=== PATIENT | male | born 1940 | race Caucasian/White ===

== ENCOUNTER 2017-01-13 11:06 | Outpatient (CLI) | payer MEDICARE, BC ==
--- NOTE | 2017-01-13 14:24 | MRI ---
LUMBAR SPINE MRI WITH AND WITHOUT CONTRAST: Date: 01/13/17 COMPARISON: 10/20/12. HISTORY: Post laminectomy syndrome. Localized back pain. Three previous lumbar surgeries. TECHNIQUE: Lumbar spine MRI is performed without intravenous Gadolinium administration. Multisequential, multip lanar imaging is performed. FINDINGS: There is appropriate T1 marrow signal intensity of lumbar vertebra. Lumbar spine vertebral body heig ht is maintained. No fracture. Limited evaluation of the L3, L4, and L5 vertebral bodies secondary t o bilateral transpedicular screws with resultant metallic susceptibility artifact. On the postcontra st images, there is no abnormal enhancement of the vertebral bodies. There is no abnormal enhancemen t within the thecal sac, including the cauda equina and conus medullaris. Symmetric signal intensity of the psoas muscles. There is a T2 hyperintensity in the upper pole of the right kidney compatible with a cyst. Conus medullaris terminates at the mid to lower aspect of the T12 vertebral body. There is no significant STIR hyperintensity to suggest vertebral body edema or ligamentous injury. T12-L1: Adequate disc hydration. No significant central canal stenosis. Neural foramina are patent. L1-L2: Generalized disc bulge, ligamentum flavum thickening, and facet hypertrophy result in moderate to se og central canal stenosis. The degree of central canal stenosis has progressed when compared to th e previous examination. Small amount of fluid in both interarticular facet joints. Moderate to sever e bilateral foraminal narrowing. L2-L3: Mild loss of disc space height. Generalized disc bulge, ligamentum flavum thickening, and facet hype rtrophy result in mild central canal stenosis. Mild right and moderate left neural foraminal narrowi ng. L3-L4: Disc desiccation with severe loss of disc space height. There appear to be posterior decompressive l aminectomy changes. No high grade central canal stenosis. Limited evaluation of the neural foramina. At least moderate right and possible moderate to severe left foraminal narrowing. On the postcontra st images, there is minimal enhancing scar tissue at the laminectomy defect site. L4-l5: Disc desiccation with severe loss of disc space height. No significant posterior disc abnormality. T here are posterior decompressive laminectomy changes. No high grade central canal stenosis. Moderate bilateral foraminal narrowing. Evaluation is limited by metallic susceptibility artifact. L5-S1: Posterior decompressive laminectomy changes are noted. There is a generalized disc bulge with disc m aterial encroaching upon both subarticular zones. Mass effect without obscuration of traversing S1 n erve root. No significant stenosis of the thecal sac. Minimal enhancement of laminectomy defect site . Limited evaluation of neural foramina. Moderate foraminal narrowing is suspected. IMPRESSION: 1. Lumbar fusion changes as above. 2. Degenerative changes of the lumbar spine as detailed above. POS: [place]
== END 2017-01-13 11:07 | disposition home or self-care (01) ==
LOC: MRI 11:06
PROVIDERS: ATTEND Anesthesiology Pain Medicine
DX: M47.26 Other spondylosis with radiculopathy, lumbar region (principal); M96.1 Postlaminectomy syndrome, not elsewhere classified; Z98.1 Arthrodesis status
CPT/HCPCS: 72158

== ENCOUNTER 2017-09-09 11:21 | Emergency (ER) | payer MEDICARE, BC ==
[2017-09-09 13:08] LABS: Bilirubin Negative (Negative); Blood, Urine Large (Negative); Clarity CLEAR (Clear); Glucose, Urine (Dipstick) Negative (Negative); Leukocyte Negative (Negative); Nitrite Negative (Negative); Protein, Urine (Dipstick) Negative (Neg-Trace); Urobilinogen 0.2 mg/dL (0.2-1.0)
[2017-09-09 13:11] LABS: Bacteria/HPF None Seen HPF (None Seen); Hyaline Casts/LPF 0-3 HYALINE CAST LPF (0-3 Hyaline); Pathc Cast-AUWi Flag 0.14 (0-2.49); RBC/HPF 21-50 HPF (0-3); Squamous Epithelial None Seen HPF (0-3); WBC/HPF 0-3 HPF (0-3)
[2017-09-09] MEDS ORDERED: Acetaminophen/Codeine 30-300mg Tablet ONE (13:11)
[2017-09-09 13:27] LABS: #Eosinphils 0.3 thou/uL (0.0-0.7); #Lymphocytes 0.8 thou/uL (1.20-3.40); #Monocytes 0.6 thou/uL (0.11-0.59); #Neutrophils 6.9 thou/uL (1.40-6.50); %Eosinophils 3.9 % (0.0-10.0); %Lymphocytes 9.6 % (21.0-51.0); %Monocytes 6.8 % (0.0-10.0); %Neutrophils 79.8 % (42.0-75.0); Hemoglobin 10.9 g/dL (14.0-18.0); Mean Corpuscular HGB CONC 33.6 g/dL (32.0-36.0); Mean Corpuscular Volume 98.2 fl (80.0-94.0); Mean Platelet Volume 6.3 fL (7.4-10.4); Platelet Count 238 thou/uL (130-400); RBC Distribution Width 11.6 % (11.5-14.5); Red Blood Cell (RBC) Count 3.31 mill/uL (4.70-6.10); White Blood Cell (WBC) Count 8.7 thou/uL (4.8-10.8)
--- NOTE | 2017-09-09 13:32 | RAD ---
LUMBAR SPINE 3 VIEWS: Date: 09/09/17 HISTORY: Low back pain. FINDINGS/IMPRESSION: Comparison made with exam of 07/18/15. Postop changes of posterior spinal fusion at L3-4-5 levels with bilateral pedicle screws and interloc macario vertical rods are again seen. Metallic hardware is intact. Mild compression of L3 vertebral body is stable. Degenerative changes in the lumbar spine and mild dextroscoliosis are again seen. There i s mild compression of T12 vertebral body, which is new since the last exam. POS: [place]
--- NOTE | 2017-09-09 13:37 | RAD ---
FRONTAL RADIOGRAPH PELVIS: 09/09/2017 HISTORY: Back pain. Prior surgery. Injury. COMPARISON: 02/28/2007 FINDINGS: Multilevel postoperative hardware is seen involving the lower lumbar spine at L3-L4 and at L4-L5. Th ere is a total hip arthroplasty on the left. There is no widening of the sacroiliac joints or pubic symphysis. The pelvic ring is intact. There is no displaced fracture. There is atherosclerotic gem cification of the pelvis. IMPRESSION: Chronic findings, as described above. No displaced fracture is seen. POS: [place]
[2017-09-09 13:59] LABS: ALT (SGPT) 12 U/L (8-55); AST (SGOT) 15 U/L (5-34); Albumin 3.9 g/dL (3.4-4.8); Alkaline Phosphatase 91 U/L (40-150); Anion Gap 14 mmol/L (10-20); BUN (Urea Nitrogen) 22 mg/dL (8.4-25.7); Bilirubin, Total 0.4 mg/dL (0.2-1.2); Calc. Creatinine Clearance 0 mL/min (70-130); Calcium 9.2 mg/dL (7.8-10.44); Carbon Dioxide 25 mmol/L (23-31); Chloride 100 mmol/L (98-107); Estimated GFR-MDRD 85; Glucose 118 mg/dL (83-110); Potassium 3.8 mmol/L (3.5-5.1); Protein, Total 6.9 g/dL (5.8-8.1); Sodium 135 mmol/L (136-145)
== END 2017-09-09 14:20 | disposition home or self-care (01) ==
LOC: ERS 11:21
DX: M54.5 Low back pain (principal); R31.9 Hematuria, unspecified; E78.5 Hyperlipidemia, unspecified; I10 Essential (primary) hypertension; F32.9 Major depressive disorder, single episode, unspecified; Z85.46 Personal history of malignant neoplasm of prostate; Z79.899 Other long term (current) drug therapy; Z79.1 Long term (current) use of non-steroidal anti-inflammatories (NSAID); W17.89XA Other fall from one level to another, initial encounter
CPT/HCPCS: 36415; 72100; 72170; 80053; 81003; 81015; 85025

== ENCOUNTER 2017-09-17 15:41 | Outpatient (CLI) | payer MEDICARE, BC ==
--- NOTE | 2017-09-17 16:46 | CT ---
THORACIC SPINE CT NONCONTRAST: 09/17/17 CLINICAL HISTORY: Thoracic spine pain. history of T12 compression fracture. No prior imaging comparisons available. FINDINGS: Incidental note of degenerative change at the imaged, partially visualized lower cervical spine. The T1 through T3 vertebral bodies maintain appropriate height. There is minimal superior end plate heigh t loss of T4. Mild superior end plate height loss of T5 is present. There is mild inferior end plate irregularity which may be degenerative involving T6. There is mild to moderate anterior wedge monique janis deformity of T7. Mild anterior wedge deformity of T8 present. Minimal superior end plate irregul arity/height loss of T9 is present. There is mild to moderate central height loss of T10. T11 vertebr al body reveals mild superior end plate irregularity. There is a moderate recent appearing compressio n fracture of T12 with prominent air density throughout the compressed T12 vertebral body as well as involving the adjacent T11-12 and T12-L1 disc spaces. There is mild retropulsion of bone of T12, as r esult of the compression deformity which results in mild osseous narrowing of the vertebral canal. In cidental note of degenerative change at the partially visualized upper lumbar spine. Within the paraspinous region of T11-12, there is mild edema/hematoma related to the compression defo rmity. Multilevel degenerative change present. There is osseous demineralization. Diffuse vascular disease i s present. There is left convexity curvature centered at the mid to low thoracic spine. IMPRESSION: Multilevel areas of height loss throughout the thoracic spine as outlined above. The most significant and most recent of which is located at the T12 level with a mild degree of retropulsion of bone as w ell as surrounding paraspinous edema/hematoma. Incidental note of mild posteromedial irregularity of the right T9 and T10 rib suggests recent fractu re deformities. There are also incidentally imaged transverse process fractures on the right involvin g L1 and L2. Telephone call of findings placed to patient's physician, Young Vargas at time of dictation, 161 0 hours, 09/17/17. Code CR POS: [facility]
== END 2017-09-17 15:42 | disposition home or self-care (01) ==
LOC: CT 15:41
PROVIDERS: ATTEND Anesthesiology Pain Medicine
DX: S22.080A Wedge compression fracture of T11-T12 vertebra, initial encounter for closed fracture (principal)
CPT/HCPCS: 72128

== ENCOUNTER 2017-09-19 15:33 | Outpatient (CLI) | payer MEDICARE, BC | END 2017-09-19 15:34 | disposition home or self-care (01) | LOC: BICMRI 15:33 | PROVIDERS: ATTEND Anesthesiology Pain Medicine | DX: S22.080A Wedge compression fracture of T11-T12 vertebra, initial encounter for closed fracture (principal) | CPT/HCPCS: 72146 ==

== ENCOUNTER 2017-12-12 07:02 | Day surgery (SDC) | payer MEDICARE, BC ==
[2017-12-11 12:25] VITALS: BMI 29.9
[2017-12-12 08:11] VITALS: BP 118/71; TEMP 98
--- NOTE | 2017-12-12 12:30 | CT ---
CT THORACIC SPINE MYELOGRAM: INDICATIONS: History of spinal stenosis, T12 compression fracture, status post vertebroplasty. COMPARISON: Recent CT thoracic spine, dated 09/17/2017. TECHNIQUE: Multiple CT images were obtained of the thoracic spine after intrathecal administration of Omnipaque 300-M solution. Please see the separately dictated CT lumbar myelogram for details concerning the in jection technique. FINDINGS: There has been interval vertebroplasty of the T12 compression fracture seen on the comparison examina tion of 09/17/2017. The chronic wedge compression abnormalities involving T4, T5, T7, T8, and T10 ar e stable. Diffuse osteopenia is similar appearing. At T1-T2, there is no appreciable osseous central canal or neural foraminal narrowing. At T2-T3, there is no appreciable osseous central canal or neural foraminal narrowing. At T3-T4, there is no appreciable osseous central canal or neural foraminal narrowing. At T4-T5, there is no appreciable central canal or neural foraminal narrowing. At T5-T6, there is no appreciable central canal or neural foraminal narrowing. At T6-T7, there is no appreciable central canal or neural foraminal narrowing. At T7-T8, there is no appreciable central canal or neural foraminal narrowing. There is a small broa d-based disk bulge. At T8-T9, there is no appreciable central canal or neural foraminal narrowing. At T9-T10, there is no appreciable central canal or neural foraminal narrowing. At T10-T11, there is facet hypertrophy and a broad-based bulge inducing mild central canal narrowing. The broad-based bulge does appear to encroach on the spinal canal without definite compression. At T11-T12, there is a broad-based bulge without appreciable central canal narrowing. There appears to be mild bilateral neural foraminal narrowing due to facet hypertrophy and a broad-based base. There is mild central canal narrowing at T12 due to mild retropulsion of bone fragments from the zahida in of T12. Within the retroperitoneum, there is a small hiatal hernia. There is some mild scarring within the m edial right lower lobe, likely related to marginal osteophytes. There are coronary artery and thorac ic aortic calcifications. IMPRESSION: Interval vertebroplasty change at T12. There is mild central canal narrowing at T12 due to retropuls ed bone fragments from the posterior margin of the T12 vertebral body. This does not impinge upon th e spinal cord. There is mild narrowing at T10-T11 due to a broad-based disk osteophyte complex, ligamentum flavum hy pertrophy, and facet hypertrophy, without definite cord compression. There are wedge compression abnormalities that are chronic, involving T4, T5, T7, T8, and T10 vertebr al levels, which is stable to a comparison CT, dated 09/17/2017. POS: [place]
--- NOTE | 2017-12-12 12:50 | CT ---
CT LUMBAR MYELOGRAM: INDICATION: History of spinal stenosis. TECHNIQUE: Multiple CT images were obtained of the lumbar spine following intrathecal administration of Omnipaqu e solution. Axial, coronal, and sagittal reformatted images were constructed from the raw data. FINDINGS: Again seen is instrumentation extending from L3 through L5 posterolaterally with interconnecting rods . The pedicle screws project in the expected position. There is prominent compression fracture of T12 with associated vertebroplasty change. There is very mild retropulsion of bone fragments from the posterior margin of T12 causing some mild narrowing of t he central canal at T12. There is a remote-appearing superior end plate compression deformity at L3 which is stable to the [facility] parison in 2017. Laminectomy changes are again seen at L4 and L5. There is vacuum-disk phenomenon seen at the L5-S1 intervertebral level likely indicative of some ongo ing disc instability . There are type III Modic end plate degenerative changes at L5-S1 and L1-L2. There is vacuum-disk phenomenon at L1-L2 intervertebral disk level as well. At the L5-S1 level, there is moderate to severe facet joint degenerative change. There is a broad-ba sed disk-osteophyte complex. There is moderate to severe bilateral osseous neural foraminal narrowin g, left greater than right, which is likely stable to the prior MRI examination. At L4-5, there is a broad-based osteophyte complex with facet hypertrophy inducing moderate right and mild left osseous neural foraminal narrowing, which is likely stable to the prior exam. At L3-4:, there is a broad-based osteophyte complex with fact hypertrophy inducing at least moderate bilateral neural foraminal narrowing which is likely stable to the prior exam. At L2-3, there is very subtle retrolisthesis of L2 on L3. There is a broad-based bulge with facet hy pertrophy inducing moderate right and moderate to severe left neural foraminal narrowing. This is st able to the prior exam. There is also mild central canal narrowing at this level which is also stabl e to the prior exam. At the L1-L2 level, there is very subtle retrolisthesis of L2 on L3. There is a broad-based bulge wi th ligamentum flavum hypertrophy. Constellation of findings induces severe central canal narrowing w hich is stable to the prior exam. There is severe bilateral neural foraminal narrowing. This appear s worse than on the prior study. At T12-L1, due to the retropulsed bone fragments from the posterior margin of T12, loss of disk space height in addition to a broad-based disk-osteophyte complex and facet hypertrophy there is moderate to severe left and severe right neural foraminal narrowing. This is new from the prior exam. The re tropulsed bone fragments at T12 induce mild central canal narrowing without cord compression. At T11-T12, there is a mild broad-based disk-osteophyte complex mildly narrowing the central canal an d neural foramina. This is stable to the prior exam. Visualized retroperitoneum demonstrates prominent vascular calcification involving the abdominopelvic vasculature. IMPRESSION: 1. Stable severe central canal narrowing at L1-L2 due to a broad-based disk-osteophyte complex and f acet hypertrophy with ligamentum flavum hypertrophy. The osteophyte complex appears slightly more pr onounced with facet hypertrophy inducing worsening severe neural foraminal narrowing at L1-L2. 2. Worsening bilateral neural foraminal narrowing at T12-L1. This is severe on the right and modera te to severe on the left. There is mild central canal narrowing due to retropulsed bone fragments fr om the patient's T12 compression fracture. 3. Mild right and moderate to severe left neural foraminal narrowing at L2-3. There is stable mild central canal narrowing at L2-3. POS: [place]
--- NOTE | 2017-12-12 12:54 | CT ---
CT GUIDED LUMBAR MYELOGRAM: INDICATIONS: History of lumbar spinal stenosis. History of T12 vertebral body compression fracture, status post v ertebroplasty. TECHNIQUE: Informed consent was obtained. The patient was placed prone on the CT fluoroscopic table. The site overlying the L4-L5 laminectomy defect was localized. The site was prepped and draped in the usual s terile fashion. Buffered 1% Lidocaine was administered to the overlying subcutaneous tissues. Under CT fluoroscopic guidance, a 22 gauge spinal needle was guided down into the thecal sac. There was s pontaneous return of normal appearing CSF. Omnipaque 300-M contrast, 1 mL, was instilled within the thecal sac. A single phase series was run to confirm intrathecal placement of contrast. Following t his, a total of 12 mL of Omnipaque 300-M was administered into the thecal space without difficulty. The inner stylet was replaced within the spinal needle, and the spinal needle was removed. The patie nt was then placed supine on a hospital gurney and placed in the Trendelenburg position for 10 minute s. The patient was then replaced back on the CT table for follow-up CT thoracic and lumbar myelogram . The patient tolerated the procedure without difficulty. IMPRESSION: Successful CT guided lumbar myelogram. POS: [place]
--- NOTE | 2017-12-12 13:02 | RAD ---
FLUOROSCOPIC-GUIDED LUMBAR MYELOGRAM: INDICATION: Lumbar spinal stenosis. TECHNIQUE: Dye Reel Operator Helper images were obtained. Informed consent was obtained for the lumbar myelogram. A site overlyin g the right L3-4 interlaminar space was marked. The site was prepped and draped in the usual sterile fashion. Buffered 1% Lidocaine was administered to the overlying subcutaneous tissues. Under fluor oscopic guidance, multiple attempts were made to gain access to the thecal sac through the right L3-4 interlaminar space that proved to be unsuccessful. Attempts was made to access the thecal sac via l aminectomy defects at L4 and L5 that also proved to be unsuccessful due to poorly visualized calcifie d fibrosis overlying the laminectomy defects. After 2 additional attempts that proved to be unsucces sful, the fluoroscopic-guided lumbar myelogram was cancelled and the patient was escorted to the CT s ui for a followup CT lumbar myelogram. The total fluoroscopic time was 2 minutes. Total exposure 1240.5 uGy*^cm2. FINDINGS: There is moderate thoracolumbar scoliosis. There are chronic wedge compression abnormalities of T4, T5, T6, T8, an dT10. There is interval vertebroplasty change of the compression abnormality of T12. No new compression fracture is evident. There is stable instrumentation involving L3 through L5 con sisting of bilateral pedicle screws with interconnecting rods. There are prominent vascular calcific ations involving the abdominal aorta. There is a left total hip replacement. There is diffuse osteo penia. IMPRESSION: Unsuccessful fluoroscopic-guided lumbar myelogram. This procedure was cancelled and the patient was escorted to the CT suite for a followup CT guided lumbar myelogram. Please see this report for full details concerning the injection technique. POS: [place]
== END 2017-12-12 11:00 | disposition home or self-care (01) ==
LOC: RAD 07:02
PROVIDERS: ATTEND Neurological Surgery
PROC: B01B1ZZ Fluoroscopy of Spinal Cord using Low Osmolar Contrast (ICD-10-PCS; principal; 2017-12-12)
DX: M48.061 Spinal stenosis, lumbar region without neurogenic claudication (principal); M41.85 Other forms of scoliosis, thoracolumbar region; M48.54XA Collapsed vertebra, not elsewhere classified, thoracic region, initial encounter for fracture; I10 Essential (primary) hypertension; E78.5 Hyperlipidemia, unspecified; M19.90 Unspecified osteoarthritis, unspecified site; Z79.899 Other long term (current) drug therapy; Z96.649 Presence of unspecified artificial hip joint; Z98.1 Arthrodesis status
CPT/HCPCS: 62305; 72129; 72131; 72132; 77002

== ENCOUNTER 2018-01-07 14:01 | Outpatient (CLI) | payer MEDICARE, BC ==
[2018-01-07 15:57] LABS: Hemoglobin 12.8 g/dL (14.0-18.0); Mean Corpuscular HGB CONC 31.5 g/dL (32.0-36.0); Mean Corpuscular Hemoglobin 29.6 pg (27.0-31.0); Mean Corpuscular Volume 93.8 fL (78.0-98.0); Mean Platelet Volume 6.4 fL (7.4-10.4); Platelet Count 287 thou/uL (130-400); RBC Distribution Width 12.1 % (11.5-14.5); Red Blood Cell (RBC) Count 4.32 mill/uL (4.70-6.10); White Blood Cell (WBC) Count 8.2 thou/uL (4.8-10.8)
[2018-01-07 16:09] LABS: Anion Gap 12 mmol/L (10-20); BUN (Urea Nitrogen) 24 mg/dL (8.4-25.7); Calc. Creatinine Clearance 0 mL/min (70-130); Calcium 9.4 mg/dL (7.8-10.44); Carbon Dioxide 31 mmol/L (23-31); Chloride 102 mmol/L (98-107); Estimated GFR-MDRD 61; Glucose 107 mg/dL (83-110); Potassium 4.6 mmol/L (3.5-5.1); Sodium 140 mmol/L (136-145)
--- NOTE | 2018-01-07 16:48 | EKG ---
Test Reason : Blood Pressure : / mmHG Vent. Rate : 059 BPM Atrial Rate : 059 BPM P-R Int : 196 ms QRS Dur : 114 ms QT Int : 394 ms P-R-T Axes : 000 004 023 degrees QTc Int : 390 ms Junctional rhythm Cannot rule out Anterior infarct (cited on or before 07-JAN-2018) Cannot rule out Inferior infarct , age undetermined Abnormal ECG When compared with ECG of 03-MAR-2015 09:50, Junctional rhythm has replaced Sinus rhythm Questionable change in QRS axis Confirmed by AURELIA RASCON, SRonni ([id number]) on 01/07/2018 4:48:26 PM Referred By: ANA Confirmed By:DR. Brent MOSES MD
== END 2018-01-07 14:02 | disposition home or self-care (01) ==
LOC: LABBT 14:01
PROVIDERS: ATTEND Neurological Surgery
DX: Z01.818 Encounter for other preprocedural examination (principal); M48.062 Spinal stenosis, lumbar region with neurogenic claudication
CPT/HCPCS: 80048; 85027; 93005; 93010

== ENCOUNTER 2018-01-12 07:41 | Observation (INO) | payer MEDICARE, BC ==
[2018-01-07 14:28] VITALS: BMI 29.6
[2018-01-12] MEDS ORDERED: CEFAZOLIN/Water 2 GM/20 ML SYRINGE ONE (08:07)
[2018-01-12] MEDS ORDERED: Promethazine HCl 25 MG/ML VIAL SLOW IVP PRN (10:37)
[2018-01-12] MEDS ORDERED: Ondansetron HCl/PF 4 MG/2 ML Vial IVP PRN (10:37)
[2018-01-12] MEDS ORDERED: Promethazine HCl 25 MG/ML VIAL IM PRN ×2 (10:37→11:44)
[2018-01-12] MEDS ORDERED: Fentanyl 100 MCG/2 ML VIAL ONE ×2 (11:13→11:29)
[2018-01-12] MEDS ORDERED: diphenhydrAMINE 25 MG CAP PO PRN (11:44)
[2018-01-12] MEDS ORDERED: diphenhydrAMINE 50 MG/ML VIAL IVP PRN (11:44)
[2018-01-12] MEDS ORDERED: Morphine 4 MG/ML Carpuject SLOW IVP PRN (11:44)
[2018-01-12] MEDS ORDERED: Promethazine 25 MG TAB PO PRN (11:44)
[2018-01-12] MEDS ORDERED: HYDROcodone/Acetaminophen 10/325 mg Tablet PO PRN (11:44)
[2018-01-12] MEDS ORDERED: Promethazine HCl 12.5 MG SUPP PR PRN (11:44)
[2018-01-12] MEDS ORDERED: Milk Of Magnesia 30 ML UDCUP PO PRN (11:44)
[2018-01-12] MEDS ORDERED: Mag-Al 1200 mg/1200 mg/30 ML UDCUP PO PRN (11:44)
[2018-01-12] MEDS ORDERED: traMADol HCl 50 MG TAB PO PRN ×2 (11:44)
[2018-01-12] MEDS ORDERED: Ondansetron HCl/PF 4 MG/2 ML Vial IM PRN (11:46)
--- NOTE | 2018-01-12 11:58 | OP ---
DATE OF PROCEDURE: 01/12/2018 SURGEON: Flo Mchugh M.D. GOLF CART ASSEMBLER: Connie Wright PA-C. PROCEDURE: L1-L2 laminectomy. PROCEDURE IN DETAIL: The patient was brought into the operating room and intubated. He was rolled i n the prone position on gel-filled chest rolls. Incision was made exposing the L1-L2 and our level w as confirmed by x-ray. We performed complete L2 and inferior L1 laminectomy, completely decompressin g the L1-L2 interspace. The wound was then extensively irrigated. Immaculate hemostasis was secured . Vancomycin powder was applied and the wound was closed in anatomic layers.
[2018-01-12] MEDS ORDERED: HYDROmorphone 2 MG/ML VIAL ONE (12:01)
[2018-01-12] MEDS ORDERED: ePHEDrine/0.9% NaCl/PF SYRINGE 50 mg/10 ml ONE (12:33)
[2018-01-12] MEDS ORDERED: Glycopyrrolate 0.2 MG/ML 5 ML SYRINGE ONE (12:33)
[2018-01-12] MEDS ORDERED: PHENYLEPHRINE-NS 100 MCG/ML 10 ML SYRINGE ONE (12:33)
[2018-01-12] MEDS ORDERED: PROPOFOL 200 MG/20 ML VIAL ONE (12:33)
[2018-01-12] MEDS ORDERED: Lidocaine 1% PF 5 ML VIAL ONE (12:33)
[2018-01-12] MEDS: tiZANidine HCl 4 MG TAB PO PRN ×2 (13:00→22:35)
[2018-01-12] MEDS: HYDROcodone/Acetaminophen 10/325 mg Tablet PO PRN ×3 (13:00→22:34)
[2018-01-12] MEDS: Sodium Chloride 0.9% 1,000 ML IV SCH (13:01)
[2018-01-12] MEDS ORDERED: CIALIS 20 MG FS NR (13:45)
[2018-01-12] MEDS: Morphine 4 MG/ML VIAL SLOW IVP PRN ×2 (15:38→20:47)
[2018-01-12] MEDS ORDERED: Morphine 4 MG/ML VIAL SLOW IVP PRN (15:45)
--- NOTE | 2018-01-12 16:58 | PDOC.PN ---
- Subjective Encounter Start Date: 01/12/18 Encounter Start Time: 15:30 Subjective: no sob or chest pain -: has pain at operated site -: is moving both lower extremities - Objective MAR Reviewed: Yes Vital Signs & Weight: Vital Signs (12 hours) Temp Pulse Resp BP Pulse Ox 01/12/18 12:45 97.8 F 67 16 146/81 H 95 Weight Weight 195 lb Phys Exam - Physical Examination HEENT: PERRLA, moist MMs Neck: no JVD, supple Respiratory: no wheezing, no rales Cardiovascular: RRR, no significant murmur Gastrointestinal: soft, non-tender, positive bowel sounds Musculoskeletal: no edema, pulses present Neurological: non-focal, moves all 4 limbs Psychiatric: normal affect, A&O x 3 Dx/Plan (1) S/P laminectomy Code(s): Z98.890 - OTHER SPECIFIED POSTPROCEDURAL STATES Status: Acute Comment: L1-2 (2) HTN (hypertension) Code(s): I10 - ESSENTIAL (PRIMARY) HYPERTENSION Status: Chronic Qualifiers: Hypertension type: essential hypertension Qualified Code(s): I10 - Essential (primary) hypertension (3) Dyslipidemia Code(s): E78.5 - HYPERLIPIDEMIA, UNSPECIFIED Status: Chronic (4) Afib Code(s): I48.91 - UNSPECIFIED ATRIAL FIBRILLATION Status: Chronic Qualifiers: Atrial fibrillation type: chronic Qualified Code(s): I48.2 - Chronic atrial fibrillation - Plan hemo/neurostable post op -: continue norvasc, diovan -: hold hctz for today and am -: is on fentanyl tts, morphine, norco, ultram and zanaflex prn -: to mobilize per nsx advice, will f/u * . Review of Systems - Medications/Allergies Allergies/Adverse Reactions: Allergies Allergy/AdvReac Type Severity Reaction Status Date / Time No Known Allergies Allergy Verified 01/07/18 14:27 Medications: Current Medications Hydrocodone Bitart/Acetaminophen (Horton 10/325) 1 tab PO Q4H PRN PRN Reason: PAIN (1-3) Hydrocodone Bitart/Acetaminophen (Horton 10/325) 2 tab PO Q4H PRN PRN Reason: PAIN (4-6) Last Admin: 01/12/18 13:00 Dose: 2 tab Al Hydroxide/Mg Hydroxide (Maalox) 30 ml PO Q4H PRN PRN Reason: Heartburn or Indigestion Allopurinol (Zyloprim) 100 mg PO QPM [facility] Amlodipine Besylate (Norvasc) 5 mg PO QAM [facility] Bupropion HCl (Wellbutrin Sr) 100 mg PO QAM [facility] Cefazolin Sodium (Ancef) 2 gm SLOW IVP 0200,1000,1800 [facility] Stop: 01/13/18 02:01 Diphenhydramine HCl (Benadryl) 25 mg PO Q6H PRN PRN Reason: Itching Diphenhydramine HCl (Benadryl) 25 mg IVP Q6H PRN PRN Reason: Itching Duloxetine HCl (Cymbalta) 30 mg PO QAM [facility] Fentanyl (Duragesic) 25 mcg TD Q3D [facility] Hydrochlorothiazide (Hydrochlorothiazide) 12.5 mg PO QPM [facility] Sodium Chloride (Normal Saline 0.9%) 1,000 mls @ 75 mls/hr IV .[id number] [facility] Last Admin: 01/12/18 13:01 Dose: 1,000 mls Magnesium Hydroxide (Milk Of Magnesium) 30 ml PO Q12H PRN PRN Reason: Constipation Morphine Sulfate (Morphine) 2 mg SLOW IVP Q1H PRN PRN Reason: Moderate Breakthrough Pain Morphine Sulfate (Morphine) 4 mg SLOW IVP Q1H PRN PRN Reason: Severe Breakthrough Pain Last Admin: 01/12/18 15:38 Dose: 4 mg Multivitamins (Theragran) 1 tab PO DAILY [facility] Cialis 20 Mg Tab 0 each FS .CLARIFY NR Stop: 01/17/18 13:46 Androgel Top 0 each FS QAM [facility] Ondansetron HCl (Zofran) 4 mg IM Q8H PRN PRN Reason: Nausea/Vomiting Pantoprazole Sodium (Protonix) 40 mg PO DAILY [facility] Promethazine HCl (Phenergan) 12.5 mg IM Q4H PRN PRN Reason: Nausea/Vomiting Promethazine HCl (Phenergan) 12.5 mg PO Q4H PRN PRN Reason: Nausea/Vomiting Promethazine HCl (Phenergan Suppository) 12.5 mg MI Q4H PRN PRN Reason: Nausea/Vomiting Rosuvastatin Calcium (Crestor) 20 mg PO HS [facility] Sodium Chloride (Flush - Normal Saline) 10 ml IVF PRN PRN PRN Reason: Saline Flush Tizanidine HCl (Zanaflex) 4 mg PO Q6H PRN PRN Reason: MUSCLE SPASM Last Admin: 01/12/18 13:00 Dose: 4 mg Tramadol HCl (Ultram) 50 mg PO Q6H PRN PRN Reason: PAIN (1-3) Tramadol HCl (Ultram) 100 mg PO Q6H PRN PRN Reason: PAIN (4-6) Valsartan (Diovan) 320 mg PO QPM CR Zolpidem Tartrate (Ambien) 10 mg PO HSPRN PRN PRN Reason: Insomnia
[2018-01-12] MEDS: CEFAZOLIN/Water 2 GM/20 ML SYRINGE SLOW IVP SCH (17:05)
[2018-01-12] MEDS: Valsartan 80 MG TAB PO SCH (20:33)
[2018-01-12] MEDS: Hydrochlorothiazide 25 MG TAB PO SCH (20:34)
[2018-01-12] MEDS: Rosuvastatin 20 MG TAB PO SCH (20:34)
[2018-01-12] MEDS: Allopurinol 100 MG TAB PO SCH (20:35)
[2018-01-13] MEDS: Zolpidem Tartrate 5 MG TAB PO PRN ×2 (00:33→22:41)
[2018-01-13] MEDS: Morphine 4 MG/ML VIAL SLOW IVP PRN (00:41)
[2018-01-13] MEDS: CEFAZOLIN/Water 2 GM/20 ML SYRINGE SLOW IVP SCH (01:07)
[2018-01-13] MEDS: Sodium Chloride 0.9% 1,000 ML IV SCH ×2 (01:13→13:21)
[2018-01-13] MEDS: HYDROcodone/Acetaminophen 10/325 mg Tablet PO PRN ×4 (06:16→20:21)
[2018-01-13] MEDS: DULoxetine 30 MG CAP PO SCH (08:18)
[2018-01-13] MEDS: Metamucil PACK PO SCH (08:18)
[2018-01-13] MEDS: Bupropion 100 MG SR TAB PO SCH (08:18)
[2018-01-13] MEDS: Amlodipine 5 MG TAB PO SCH (08:18)
[2018-01-13] MEDS: Multivit, Therapeutic 1 TAB PO SCH (08:18)
[2018-01-13] MEDS ORDERED: ANDROGEL FS SCH (09:00)
--- NOTE | 2018-01-13 12:13 | PDOC.PN ---
- Subjective Encounter Start Date: 01/13/18 Encounter Start Time: 08:00 Subjective: c/o pain at operated site -: amb with PT yesterday -: no sob or chest pain - Objective MAR Reviewed: Yes Vital Signs & Weight: Vital Signs (12 hours) Temp Pulse Resp BP BP Pulse Ox 01/13/18 10:58 97.7 F 71 20 93/63 92 L 01/13/18 08:18 81 93/66 01/13/18 07:29 98.3 F 81 24 H 93/64 92 L 01/13/18 04:00 98.7 F 79 21 H 118/70 93 L Weight Weight 195 lb I&O: 01/12/18 01/13/18 01/14/18 06:59 06:59 06:59 Intake Total 2195 Balance 2195 Phys Exam - Physical Examination HEENT: PERRLA, moist MMs Neck: no JVD, supple Respiratory: no wheezing, no rales Cardiovascular: RRR, no significant murmur Gastrointestinal: soft, non-tender, positive bowel sounds Musculoskeletal: no edema, pulses present Neurological: non-focal, moves all 4 limbs Psychiatric: A&O x 3 Dx/Plan (1) S/P laminectomy Code(s): Z98.890 - OTHER SPECIFIED POSTPROCEDURAL STATES Status: Acute Comment: L1-2 (2) HTN (hypertension) Code(s): I10 - ESSENTIAL (PRIMARY) HYPERTENSION Status: Chronic Qualifiers: Hypertension type: essential hypertension Qualified Code(s): I10 - Essential (primary) hypertension (3) Dyslipidemia Code(s): E78.5 - HYPERLIPIDEMIA, UNSPECIFIED Status: Chronic (4) Afib Code(s): I48.91 - UNSPECIFIED ATRIAL FIBRILLATION Status: Chronic Qualifiers: Atrial fibrillation type: chronic Qualified Code(s): I48.2 - Chronic atrial fibrillation - Plan hemostable -: will likely need HH with PT or rehab -: nsx will re-evaluate him this afternoon for dc plan per patient -: continue hctz, norvasc, diovan -: on fentanyl tts, may dc iv fluids if off iv narcotics * . Review of Systems - Medications/Allergies Allergies/Adverse Reactions: Allergies Allergy/AdvReac Type Severity Reaction Status Date / Time No Known Allergies Allergy Verified 01/07/18 14:27 Medications: Current Medications Hydrocodone Bitart/Acetaminophen ([place] 10/325) 1 tab PO Q4H PRN PRN Reason: PAIN (1-3) Hydrocodone Bitart/Acetaminophen ([place] 10/325) 2 tab PO Q4H PRN PRN Reason: PAIN (4-6) Last Admin: 01/13/18 11:46 Dose: 2 tab Al Hydroxide/Mg Hydroxide (Maalox) 30 ml PO Q4H PRN PRN Reason: Heartburn or Indigestion Allopurinol (Zyloprim) 100 mg PO QPM [facility] Last Admin: 01/12/18 20:35 Dose: 100 mg Amlodipine Besylate ([facility]) [facility] [place] Admin: 01/13/18 08:18 Dose: Not Given Bupropion HCl (Wellbutrin Sr) [facility] [place] Admin: 01/13/18 08:18 Dose: 100 mg Diphenhydramine HCl (Benadryl) 25 mg PO Q6H PRN PRN Reason: Itching Diphenhydramine HCl (Benadryl) 25 mg IVP Q6H PRN PRN Reason: Itching Duloxetine HCl (Cymbalta) [facility] [place] Admin: 01/13/18 08:18 Dose: 30 mg Fentanyl (Duragesic) 25 mcg TD Q3D [facility] Hydrochlorothiazide (Hydrochlorothiazide) 12.5 mg PO QPM [facility] Last Admin: 01/12/18 20:34 Dose: 12.5 mg Sodium Chloride (Normal Saline 0.9%) 1,000 mls @ 75 mls/hr IV .[id number] [facility] Last Admin: 01/13/18 01:13 Dose: Not Given Magnesium Hydroxide (Milk Of Magnesium) 30 ml PO Q12H PRN PRN Reason: Constipation Morphine Sulfate (Morphine) 2 mg SLOW IVP Q1H PRN PRN Reason: Moderate Breakthrough Pain Morphine Sulfate (Morphine) 4 mg SLOW IVP Q1H PRN PRN Reason: Severe Breakthrough Pain Last Admin: 01/13/18 00:41 Dose: 4 mg Multivitamins (Theragran) 1 tab PO DAILY [facility] Last Admin: 01/13/18 08:18 Dose: 1 tab Cialis 20 Mg Tab 0 each FS .CLARIFY NR Stop: 01/17/18 13:46 Androgel Top 0 each FS QAM [facility] Ondansetron HCl (Zofran) 4 mg IM Q8H PRN PRN Reason: Nausea/Vomiting Pantoprazole Sodium (Protonix) 40 mg PO DAILY [facility] Last Admin: 01/13/18 08:18 Dose: 40 mg Promethazine HCl (Phenergan) 12.5 mg IM Q4H PRN PRN Reason: Nausea/Vomiting Promethazine HCl (Phenergan) 12.5 mg PO Q4H PRN PRN Reason: Nausea/Vomiting Promethazine HCl (Phenergan Suppository) 12.5 mg GA Q4H PRN PRN Reason: Nausea/Vomiting Psyllium Hydrophilic Mucilloid (Metamucil) 1 pk PO DAILY [facility] Last Admin: 01/13/18 08:18 Dose: 1 pk Rosuvastatin Calcium (Crestor) 20 mg PO HS [facility] Last Admin: 01/12/18 20:34 Dose: 20 mg Sodium Chloride (Flush - Normal Saline) 10 ml IVF PRN PRN PRN Reason: Saline Flush Tizanidine HCl (Zanaflex) 4 mg PO Q6H PRN PRN Reason: MUSCLE SPASM Last Admin: 01/12/18 22:35 Dose: 4 mg Tramadol HCl (Ultram) 50 mg PO Q6H PRN PRN Reason: PAIN (1-3) Tramadol HCl (Ultram) 100 mg PO Q6H PRN PRN Reason: PAIN (4-6) Valsartan (Diovan) 320 mg PO QPM [facility] Last Admin: 01/12/18 20:33 Dose: 320 mg Zolpidem Tartrate (Ambien) 10 mg PO HSPRN PRN PRN Reason: Insomnia Last Admin: 01/13/18 00:33 Dose: 10 mg
[2018-01-13] MEDS: Allopurinol 100 MG TAB PO SCH (20:19)
[2018-01-13] MEDS: Hydrochlorothiazide 25 MG TAB PO SCH (20:20)
[2018-01-13] MEDS: Rosuvastatin 20 MG TAB PO SCH (20:21)
[2018-01-13] MEDS: Valsartan 80 MG TAB PO SCH (20:28)
[2018-01-14] MEDS: HYDROcodone/Acetaminophen 10/325 mg Tablet PO PRN ×2 (01:29→08:29)
[2018-01-14] MEDS: Morphine 4 MG/ML VIAL SLOW IVP PRN (04:33)
[2018-01-14] MEDS: tiZANidine HCl 4 MG TAB PO PRN (04:34)
[2018-01-14] MEDS: Sodium Chloride 0.9% 1,000 ML IV SCH (07:15)
--- NOTE | 2018-01-14 08:15 | DIS ---
DATE OF ADMISSION: 01/12/2018 DATE OF DISCHARGE: 01/14/2018 HOSPITAL COURSE: The patient is a 77-year-old male status post 1-2 laminectomy for lumbar stenosis. His postoperative course was uncomplicated and his pain was well controlled with medicatio ns, he was tolerating a regular diet, and voiding appropriately. He has been ambulating without diff iculty in the hallway. His dressing has remained dry. I am visiting the patient this morning, he is awake, alert, in no acute distress. He is able to sit up without difficulty on his own. He has a steady gait. He has 5/5 strength throughout. Sensation is intact to light touch. His dressing is dry. We will plan to dismiss the patient to home. I have discussed home care precautions. The patient peralta s been provided with a script for hydrocodone and Zanaflex. We will plan to follow up with the shante spangler in 2 weeks as scheduled. Please reach out to Neurosurgery for additional questions or concerns.
[2018-01-14] MEDS: Bupropion 100 MG SR TAB PO SCH (08:27)
[2018-01-14] MEDS: Amlodipine 5 MG TAB PO SCH (08:27)
[2018-01-14] MEDS: Multivit, Therapeutic 1 TAB PO SCH (08:27)
[2018-01-14] MEDS: DULoxetine 30 MG CAP PO SCH (08:27)
[2018-01-14] MEDS: Metamucil PACK PO SCH (08:27)
[2018-01-14 11:20] VITALS: TEMP 97.9
--- NOTE | 2018-01-14 12:11 | PDOC.PN ---
- Subjective Encounter Start Date: 01/14/18 Encounter Start Time: 08:45 Subjective: feels better, is all dressed up this am to go home - Objective MAR Reviewed: Yes Vital Signs & Weight: Vital Signs (12 hours) Temp Pulse Resp BP BP BP Pulse Ox 01/14/18 11:18 97.9 F 82 20 85/50 L 93 L 01/14/18 08:27 77 112/67 01/14/18 08:06 98.6 F 77 20 113/68 93 L 01/14/18 04:00 98.7 F 77 16 113/66 95 01/14/18 00:40 99.1 F 76 16 116/66 96 Weight Weight 195 lb I&O: 01/13/18 01/14/18 01/15/18 06:59 06:59 06:59 Intake Total 2195 800 Balance 2195 800 Phys Exam - Physical Examination HEENT: PERRLA, moist MMs Neck: no JVD, supple Respiratory: no wheezing, no rales Cardiovascular: RRR, no significant murmur Gastrointestinal: soft, non-tender, positive bowel sounds Musculoskeletal: no edema, pulses present Neurological: non-focal, moves all 4 limbs Psychiatric: A&O x 3 Dx/Plan (1) S/P laminectomy Code(s): Z98.890 - OTHER SPECIFIED POSTPROCEDURAL STATES Status: Acute Comment: L1-2 (2) HTN (hypertension) Code(s): I10 - ESSENTIAL (PRIMARY) HYPERTENSION Status: Chronic Qualifiers: Hypertension type: essential hypertension Qualified Code(s): I10 - Essential (primary) hypertension (3) Dyslipidemia Code(s): E78.5 - HYPERLIPIDEMIA, UNSPECIFIED Status: Chronic (4) Afib Code(s): I48.91 - UNSPECIFIED ATRIAL FIBRILLATION Status: Chronic Qualifiers: Atrial fibrillation type: chronic Qualified Code(s): I48.2 - Chronic atrial fibrillation - Plan hemostable -: ?HH on discharge with PT if ok with nsx -: says his pain is better this am -: is on fentanyl tts, norco, hctz, diovan and crestor * .
[2018-01-14] MEDS: Sodium Chloride 0.9% 500 ML IV SCH ×2 (12:57→12:58)
[2018-01-14 13:47] VITALS: BP 116/71
== END 2018-01-14 13:55 | disposition home or self-care (01) ==
LOC: SDC 07:41 → SURG A 12:33
PROVIDERS: ADMIT Neurological Surgery; ATTEND Neurological Surgery
PROC: 00NY0ZZ Release Lumbar Spinal Cord, Open Approach (ICD-10-PCS; principal; 2018-01-12)
DX: M48.062 Spinal stenosis, lumbar region with neurogenic claudication (principal); I10 Essential (primary) hypertension; E78.5 Hyperlipidemia, unspecified; I48.2 Chronic atrial fibrillation; Z79.899 Other long term (current) drug therapy; Z98.1 Arthrodesis status
CPT/HCPCS: 63005; 76001; 96361 ×2; 96374 ×3; 96375; 96376 ×3; 97116; 97139 ×4; G0378; G8978; G8979; G8980; J1170; J2001; J2270; J2704; J3010; J3370

== ENCOUNTER 2018-06-01 11:41 | Outpatient (CLI) | payer MEDICARE, BC ==
--- NOTE | 2018-06-01 14:25 | RAD ---
EXAM: CHEST TWO VIEWS: 06/01/18 HISTORY: Pneumonia of left lower lobe due to infection organism, cough and fever. COMPARISON: 09/14/15. FINDINGS: Increased bronchovascular markings bilaterally. Evidence for several healed right rib fractures with some linear and parenchymal changes in the basis which appears stable. Heart size within normal limit s. No confluent pneumonia. Severe compression injury of one of the lower thoracic vertebral bodies wi th what appears to be associated vertebroplasty change. IMPRESSION: Stable healed rib fractures. Stable chronic lung changes. No evidence for pneumonia or other acute pr ocess. POS: C
== END 2018-06-01 11:42 | disposition home or self-care (01) ==
LOC: SCSRAD 11:41
PROVIDERS: ATTEND Family Medicine
DX: J18.1 Lobar pneumonia, unspecified organism (principal)
CPT/HCPCS: 71046

== ENCOUNTER 2018-08-27 11:15 | Outpatient (CLI) | payer MEDICARE, BC ==
--- NOTE | 2018-08-27 11:30 | RAD ---
EXAM: Chest 2 views: HISTORY: Difficulty breathing COMPARISON: 06/01/2018 FINDINGS: There is a normal-sized cardiomediastinal silhouette. There is no evidence of consolidation, mass, or pleural effusion. The bones are unremarkable. IMPRESSION: No evidence of acute cardiopulmonary disease
== END 2018-08-27 11:16 | disposition home or self-care (01) ==
LOC: SCSRAD 11:15
PROVIDERS: ATTEND Family Medicine
DX: J44.0 Chronic obstructive pulmonary disease with (acute) lower respiratory infection (principal)
CPT/HCPCS: 71046

== ENCOUNTER 2019-02-02 16:32 | Inpatient (IN) | payer MEDICARE, BC ==
[2019-02-02] MEDS ORDERED: Diltiazem 125 MG/25 ML ONE (17:07)
--- NOTE | 2019-02-02 17:36 | RAD ---
AP CHEST: 02/02/19 HISTORY: Palpitations. FINDINGS/IMPRESSION: Mild cardiomegaly. Mild vascular engorgement. No infiltrate or effusion. No significant change from p rior exam of 11/18/18. POS: H
[2019-02-02 17:38] LABS: #Eosinphils 0.1 thou/uL (0.0-0.7); #Lymphocytes 0.6 thou/uL (1.20-3.40); #Monocytes 0.5 thou/uL (0.11-0.59); #Neutrophils 5.3 thou/uL (1.40-6.50); %Basophils 0.2 % (0.0-1.0); %Lymphocytes 9.7 % (21.0-51.0); %Monocytes 7.6 % (0.0-10.0); %Neutrophils 80.6 % (42.0-75.0); Hemoglobin 11.7 g/dL (14.0-18.0); Mean Corpuscular HGB CONC 33.7 g/dL (32.0-36.0); Mean Corpuscular Hemoglobin 32.4 pg (27.0-31.0); Mean Corpuscular Volume 96.1 fL (78.0-98.0); Mean Platelet Volume 6.1 fL (7.4-10.4); Platelet Count 272 thou/uL (130-400); RBC Distribution Width 13.4 % (11.5-14.5); Red Blood Cell (RBC) Count 3.62 mill/uL (4.70-6.10); White Blood Cell (WBC) Count 6.6 thou/uL (4.8-10.8)
[2019-02-02 18:03] LABS: ALT (SGPT) 14 U/L (8-55); AST (SGOT) 14 U/L (5-34); Albumin 3.8 g/dL (3.4-4.8); Alkaline Phosphatase 84 U/L (40-110); Anion Gap 15 mmol/L (10-20); BUN (Urea Nitrogen) 21 mg/dL (8.4-25.7); Bilirubin, Total 0.4 mg/dL (0.2-1.2); Calc. Creatinine Clearance 0 mL/min (70-130); Calcium 9.1 mg/dL (7.8-10.44); Carbon Dioxide 25 mmol/L (23-31); Chloride 100 mmol/L (98-107); Estimated GFR-MDRD 63; Globulin 3.1 g/dL (2.4-3.5); Glucose 92 mg/dL (83-110); Potassium 4.6 mmol/L (3.5-5.1); Protein, Total 6.9 g/dL (5.8-8.1); Sodium 135 mmol/L (136-145)
[2019-02-02] MEDS ORDERED: Acetaminophen 325 MG TAB PO PRN (18:53)
[2019-02-02] MEDS ORDERED: Bisacodyl 5 MG TAB PO PRN (18:53)
--- NOTE | 2019-02-02 19:49 | HP ---
PRIMARY CARE PROVIDER: Dr. Brandy Bush. CHIEF COMPLAINT: Palpitations. HISTORY OF PRESENT ILLNESS: Mr. Eaton is a pleasant 78-year-old gentleman, who was seen at [facility] on February 02, 2019. He reports that he was diagnosed with atrial fibrillation approximately 10 or 12 years ago. The first time, he automatically converted to normal sinus rhythm. The next time, about 10 years ago, he had to be electrically cardioverted. 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 Cavanaugh. The patient was started on flecainide and has remained in sinus rhythm for the last 10 years, according to patient. This is why he has not been on anticoagulation, according to the patient. He reports occasional leg swelling attributed to amlodipine use. He reports having palpitations over the last couple of weeks. He denies any chest pain. He denies any shortness of breath. He denies any change in exercise tolerance. He denies any lightheadedness or weakness. He reports that the palpitations are on and off. REVIEW OF SYSTEMS: All systems were reviewed and found to be negative except for the pertinent positives mentioned above. PAST MEDICAL HISTORY: Chronic back pain, dyslipidemia, hypertension, and prostate cancer status post radiation. PAST SURGICAL HISTORY: Left hip replacement, laminectomy x4, breast reconstruction bilaterally, and appendectomy. PSYCHIATRIC HISTORY: Depression. SOCIAL HISTORY: He drinks red wine 5 times a week. He denies tobacco use or recreational drug use. CODE STATUS: I discussed his code status. He is full code. FAMILY HISTORY: Father of myocardial infarction at age 48. ALLERGIES: NO KNOWN DRUG ALLERGIES. CURRENT MEDICATIONS: These need to be clarified, but in the past, he was on: 1. Placedo. 2. Zanaflex. 3. Allopurinol. 4. Amlodipine. 5. Bupropion. 6. Cymbalta. 7. Flecainide. 8. Fentanyl. 9. Motrin. 10. Multivitamins. 11. Omeprazole. 12. Crestor. 13. Cialis. 14. Testosterone. 15. Valsartan/hydrochlorothiazide. 16. Ambien. PHYSICAL EXAMINATION: GENERAL: On examination, Mr. Eaton is awake and alert, not in acute distress. VITAL SIGNS: Blood pressure is 144/95, pulse 99, respiratory rate 15, and oxygen saturation 95% on room air. He is afebrile. EYES: No scleral icterus. No conjunctival pallor. ENT: Moist mucosal membranes. No oropharyngeal erythema or exudates. NECK: Supple and nontender. Trachea is midline. RESPIRATORY: Accessory muscles of breathing are not active. Chest wall movements are symmetric bilaterally. Lungs are clear to auscultation without wheeze, rhonchi, or crepitations. CARDIOVASCULAR: S1 and S2 are heard, irregular. Peripheral pulses palpable. No carotid bruit. No pericardial rub. ABDOMEN: Soft, nontender, and distended. Bowel sounds heard. NEUROLOGIC: Cranial nerves 2 through 12 are intact. MUSCULOSKELETAL: Power is 5/5 in all 4 extremities. SKIN: No rashes or subcutaneous nodules. LYMPHATIC: No cervical lymphadenopathy. PSYCHIATRIC: Normal mood, normal affect. The patient is oriented to person, place, and time. LABORATORY DATA: Mr. Eaton's labs and investigations were reviewed. I reviewed his electrocardiogram, which shows atrial fibrillation with rapid ventricular response, no ST changes to suggest an acute coronary syndrome. I also reviewed his chest x-ray, which does not show any pulmonary infiltrates. He has normal white count, normocytic anemia with hemoglobin 11.7, normal platelet count, decreased sodium of 135, otherwise unremarkable comprehensive metabolic profile, elevated BNP of 140.4, and normal troponin I. ASSESSMENT AND PLAN: Mr. Eatno is a pleasant 78-year-old gentleman, who was seen at [facility] on February 02, 2019. His problem list includes: 1. Atrial fibrillation with rapid ventricular response: Mr. Eaton is presenting with atrial fibrillation with rapid ventricular response. He reports having palpitations over the last 2 weeks. He will be admitted to the hospital for further management. He will be monitored on telemetry. He has received Cardizem in the emergency room with improvement in the heart rate. I will continue him on Cardizem drip. I will request Cardiology Service consultation for opinion and help with management. I will also start him on Lovenox 1 mg/kg q.12 hours and transitioned to oral anticoagulants. 2. Hypertension: We will monitor vital signs, titrate antihypertensives and resume home medications once clarified. 3. Depression: Mild, stable, continue bupropion. 4. Dyslipidemia: Continue statin once dose is clarified. 5. Hyponatremia: Mild, likely asymptomatic. Many thanks for allowing me to participate in your patient's care. Please feel free to contact me with any questions or concerns. LEVEL OF RISK: High. LEVEL OF COMPLEXITY: High. Job ID: [id number]
[2019-02-02] MEDS ORDERED: Diltiazem HCl 125 MG, Admixture Fee 1 EACH in Sodium Chloride 0.9% 100 ML IVPB SCH (20:00)
[2019-02-02 20:57] LABS: Troponin I 0.027 ng/mL (< 0.028)
[2019-02-02] MEDS: Zolpidem Tartrate 5 MG TAB PO PRN (22:32)
[2019-02-02] MEDS: Enoxaparin Sodium 100 MG/ML SYRINGE SC SCH (22:34)
[2019-02-02] MEDS: Diltiazem 125 MG in Sodium Chloride 0.9% 100 ML IVPB SCH (22:35)
[2019-02-03 00:10] LABS: Troponin I 0.028 ng/mL (< 0.028)
[2019-02-03 05:28] LABS: #Eosinphils 0.3 thou/uL (0.0-0.7); #Lymphocytes 1.1 thou/uL (1.20-3.40); #Monocytes 0.6 thou/uL (0.11-0.59); #Neutrophils 4.6 thou/uL (1.40-6.50); %Basophils 0.2 % (0.0-1.0); %Eosinophils 3.8 % (0.0-10.0); %Lymphocytes 16.9 % (21.0-51.0); %Monocytes 8.6 % (0.0-10.0); %Neutrophils 70.5 % (42.0-75.0); Hemoglobin 11.8 g/dL (14.0-18.0); Mean Corpuscular HGB CONC 34.5 g/dL (32.0-36.0); Mean Corpuscular Hemoglobin 33.4 pg (27.0-31.0); Mean Corpuscular Volume 96.7 fL (78.0-98.0); Platelet Count 227 thou/uL (130-400); RBC Distribution Width 13.2 % (11.5-14.5); Red Blood Cell (RBC) Count 3.55 mill/uL (4.70-6.10); White Blood Cell (WBC) Count 6.5 thou/uL (4.8-10.8)
[2019-02-03 05:44] LABS: Anion Gap 14 mmol/L (10-20); BUN (Urea Nitrogen) 13 mg/dL (8.4-25.7); Calc. Creatinine Clearance 85 mL/min (70-130); Calcium 9.1 mg/dL (7.8-10.44); Carbon Dioxide 23 mmol/L (23-31); Chloride 103 mmol/L (98-107); Estimated GFR-MDRD 83; Glucose 80 mg/dL (83-110); Potassium 4.1 mmol/L (3.5-5.1); Sodium 136 mmol/L (136-145)
[2019-02-03] MEDS: Enoxaparin Sodium 100 MG/ML SYRINGE SC SCH ×2 (09:31→21:43)
[2019-02-03] MEDS ORDERED: traZODone HCl 50 MG TAB PO PRN (09:44)
[2019-02-03] MEDS ORDERED: Acetaminophen 500 MG TAB PO PRN (09:44)
[2019-02-03] MEDS: HYDROcodone/Acetaminophen 10/325 mg Tablet PO PRN ×2 (11:48→18:21)
[2019-02-03] MEDS ORDERED: Non-Formulary Item 1 EACH (Fluticasone/Vilanterol [Breo Ellipta 200-25 Mcg Inh] 1 PUFF) INH SCH (13:00)
[2019-02-03] MEDS: Ipratropium Oral Inhaler INH SCH ×3 (13:16→18:56)
--- NOTE | 2019-02-03 14:05 | CON ---
DATE OF CONSULTATION: 02/03/2019 REASON FOR CONSULTATION: Paroxysmal atrial fibrillation. PRIMARY CARD GAME OPERATOR: Dr. Martín Cavanaugh. HISTORY OF PRESENT ILLNESS: Mr. Eaton is a pleasant 78-year-old gentleman with previous history of paroxysmal atrial fibrillation. He states his last episode was several years ago. He recently presented with palpitations. He was found to be in atrial fibrillation with rapid ventricular response. He was placed on IV Cardizem. He was last seen in the office on 11/25/2018. Flecainide at that point was started. He is currently not on anticoagulation therapy. PAST MEDICAL HISTORY: Paroxysmal atrial fibrillation, status post cardioversion in [id number]; hyperlipidemia; hypertension; gisela placed in his back; carpel tunnel release; wrist surgery; laminectomy; hip replacement. HOME MEDICATIONS: Include 1. Diovan/hydrochlorothiazide. 2. Omeprazole. 3. Bupropion. 4. Ibuprofen. 5. Amlodipine. 6. Allopurinol. 7. Flecainide. 8. Ambien. 9. Rosuvastatin. 10. Tamsulosin. REVIEW OF SYSTEMS: A 10-point review of systems as above, otherwise negative. PHYSICAL EXAMINATION: GENERAL: Patient is a pleasant 78-year-old gentleman who is in no acute distress. The patient appears their stated age. VITAL SIGNS: Blood pressure 157/87, pulse 74, temperature 98.2. NEUROLOGIC: The patient is alert and oriented x3 with no focal neurologic deficits. HEENT: Sclerae without icterus. Mouth has moist mucous membranes with normal pallor. NECK: No JVD. Carotid upstroke brisk. No bruits bilaterally. LUNGS: Clear to auscultation with unlabored respirations. BACK: No scoliosis or kyphosis. CARDIAC: Irregularly irregular. ABDOMEN: Soft, nontender, nondistended. No peritoneal signs present. No hepatosplenomegaly. No abnormal striae. EXTREMITIES: 2+ femoral and 2+ dorsalis pedis pulses. No cyanosis, clubbing, or edema. SKIN: No gross abnormalities. PERTINENT LABORATORY DATA: Hemoglobin 11.8, hematocrit 34.3, creatinine 0.88. BNP of 140, troponin negative. IMPRESSION: New onset atrial fibrillation. RECOMMENDATIONS: 1. Continue enoxaparin at 100 mg p.o. q.12 hours. 2. Supplement with p.o. Cardizem and increase p.o. dose and titrating down the IV dose. 3. Keep n.p.o. after midnight. 4. Further recommendation per Dr. Martín Cavanaugh in a.m. Job ID: [id number]
[2019-02-03] MEDS: Diltiazem HCl SR 60 mg Capsule PO SCH ×2 (14:57→21:44)
--- NOTE | 2019-02-03 18:19 | PDOC.HOSPP ---
- Subjective Encounter Date: 02/03/19 Encounter Time: 08:40 Subjective: Pt seen for followup re: karin proctor with RVR. No complaints. - Objective Vital Signs & Weight: Vital Signs (12 hours) Temp Pulse Resp BP BP Pulse Ox 02/03/19 15:00 98.6 F 98 16 129/77 94 L 02/03/19 13:16 87 16 93 L 02/03/19 11:50 98.2 F 74 16 157/87 H 94 L 02/03/19 07:58 97.8 F 86 16 126/62 96 Weight Weight 197 lb 6.4 oz Result Diagrams: 02/03/19 05:17 02/03/19 05:17 Additional Labs: Labs and MARs reviewed by me. EKG Reviewed by me: Yes (Tele: karin proctor) Hospitalist ROS - Medication Medications: Active Medications Generic Name Dose Route Start Last Admin Trade Name Freq PRN Reason Stop Dose Admin Hydrocodone Bitart/Acetaminophen 1 tab 02/03/19 09:44 02/03/19 11:48 [place] 10/325 PO 1 tab Q6H PRN Administration Moderate to Severe Pain (6-10) Diltiazem HCl 60 mg 02/03/19 14:00 02/03/19 14:57 Cardizem Sr PO 60 mg Q8HR CR Administration Enoxaparin Sodium 100 mg 02/02/19 21:00 02/03/19 09:31 Lovenox SC 100 mg 0900,2100 CR Administration Fentanyl 25 mcg 02/03/19 09:45 02/03/19 11:15 Duragesic TD Not Given Q3D CR Diltiazem HCl 125 mg/ Sodium 125 mls @ 5 mls/hr 02/02/19 19:00 02/02/19 22:35 Chloride IVPB 125 mls INF CR Administration Protocol 5 MG/HR Ipratropium [place] 2 puff 02/03/19 13:00 02/03/19 13:19 Atrovent Hfa INH Not Given QID CR Pantoprazole Sodium 40 mg 02/03/19 21:00 02/02/19 22:32 Protonix PO 40 mg QPM CR Administration Sodium Chloride 10 ml 02/02/19 21:00 02/03/19 09:32 Flush - Normal Saline IVF 10 ml Q12HR CR Administration Zolpidem Tartrate 10 mg 02/02/19 21:18 10/22/19 22:32 Ambien PO 10 mg HS PRN Administration Insomnia - Exam General - other findings: obese Eye: anicteric sclera ENT: moist mucosa Neck: supple Heart: irregular Respiratory: CTAB Gastrointestinal: soft, non-tender Neurological: no weakness Musculoskeletal: no muscle wasting Psychiatric: normal affect, normal behavior Hosp A/P (1) Atrial fibrillation with RVR Code(s): I48.91 - UNSPECIFIED ATRIAL FIBRILLATION Status: Acute (2) Gout Code(s): M10.9 - GOUT, UNSPECIFIED Status: Chronic (3) Dyslipidemia Code(s): E78.5 - HYPERLIPIDEMIA, UNSPECIFIED Status: Chronic (4) HTN (hypertension) Code(s): I10 - ESSENTIAL (PRIMARY) HYPERTENSION Status: Chronic Qualifiers: Hypertension type: essential hypertension Qualified Code(s): I10 - Essential (primary) hypertension - Plan out of bed/ambulate Wean pt off of IV cardizem, start oral CCB. Continue anticoagulation. Resume allopurinol. Continue statin.
[2019-02-03] MEDS: Diltiazem 125 MG in Sodium Chloride 0.9% 100 ML IVPB SCH (18:21)
[2019-02-03] MEDS: Mometasone/Formoterol 120 PUFF INHALER INH SCH (18:57)
[2019-02-03] MEDS: Mometasone 100 MCG HFA INHALER INH SCH (18:58)
[2019-02-03] MEDS: Ibuprofen 200 MG TAB PO SCH (21:43)
[2019-02-03] MEDS: Rosuvastatin 20 MG TAB PO SCH (21:43)
[2019-02-03] MEDS: Allopurinol 100 MG TAB PO SCH (21:43)
[2019-02-03] MEDS: tiZANidine HCl 4 MG TAB PO SCH (21:44)
[2019-02-03] MEDS: Zolpidem Tartrate 5 MG TAB PO PRN (21:45)
[2019-02-04 05:46] LABS: #Eosinphils 0.2 thou/uL (0.0-0.7); #Lymphocytes 1.3 thou/uL (1.20-3.40); #Monocytes 0.6 thou/uL (0.11-0.59); #Neutrophils 4.2 thou/uL (1.40-6.50); %Basophils 0.1 % (0.0-1.0); %Eosinophils 3.4 % (0.0-10.0); %Lymphocytes 19.8 % (21.0-51.0); %Monocytes 9.9 % (0.0-10.0); %Neutrophils 66.8 % (42.0-75.0); Hemoglobin 11.7 g/dL (14.0-18.0); Mean Corpuscular HGB CONC 33.4 g/dL (32.0-36.0); Mean Corpuscular Hemoglobin 32.2 pg (27.0-31.0); Mean Corpuscular Volume 96.4 fL (78.0-98.0); Mean Platelet Volume 6.2 fL (7.4-10.4); Platelet Count 276 thou/uL (130-400); RBC Distribution Width 13.3 % (11.5-14.5); Red Blood Cell (RBC) Count 3.62 mill/uL (4.70-6.10); White Blood Cell (WBC) Count 6.3 thou/uL (4.8-10.8)
[2019-02-04] MEDS: Diltiazem HCl SR 60 mg Capsule PO SCH ×3 (05:58→22:35)
[2019-02-04 06:08] LABS: Anion Gap 14 mmol/L (10-20); BUN (Urea Nitrogen) 19 mg/dL (8.4-25.7); Calc. Creatinine Clearance 71 mL/min (70-130); Calcium 9.1 mg/dL (7.8-10.44); Carbon Dioxide 25 mmol/L (23-31); Chloride 101 mmol/L (98-107); Estimated GFR-MDRD 68; Glucose 111 mg/dL (83-110); Sodium 136 mmol/L (136-145)
[2019-02-04] MEDS: Mometasone/Formoterol 120 PUFF INHALER INH SCH ×2 (07:19→18:28)
[2019-02-04] MEDS: Ipratropium Oral Inhaler INH SCH ×4 (07:23→18:29)
[2019-02-04] MEDS: Mometasone 100 MCG HFA INHALER INH SCH ×2 (07:23→18:28)
[2019-02-04] MEDS ORDERED: TESTOSTERONE 40.5 MG TD SCH (09:00)
[2019-02-04] MEDS ORDERED: Non-Formulary Item 1 EACH (Olmesartan/Hydrochlorothiazide [Olmesartan-Hctz 40-12.5 Mg Tab PO SCH (09:00)
[2019-02-04] MEDS ORDERED: FLECAINIDE ACETATE 50 MG PO SCH (09:00)
[2019-02-04] MEDS ORDERED: Flecainide 50 MG TAB PO SCH (09:00)
[2019-02-04] MEDS: Apixaban 5 MG TAB PO SCH ×2 (09:37→20:48)
[2019-02-04] MEDS: Ibuprofen 200 MG TAB PO SCH ×2 (09:37→20:45)
[2019-02-04] MEDS: tiZANidine HCl 4 MG TAB PO SCH ×3 (09:37→20:46)
[2019-02-04] MEDS: Bupropion 100 MG SR TAB PO SCH (09:37)
[2019-02-04] MEDS: Amlodipine 5 MG TAB PO SCH (09:37)
[2019-02-04] MEDS: DULoxetine 30 MG CAP PO SCH (09:37)
[2019-02-04] MEDS: Losartan 25 MG TAB PO SCH (09:37)
[2019-02-04] MEDS: Tamsulosin HCl 0.4 MG CAP PO SCH (09:37)
[2019-02-04] MEDS: HYDROcodone/Acetaminophen 10/325 mg Tablet PO PRN ×3 (09:38→22:33)
[2019-02-04] MEDS ORDERED: Amiodarone 200 MG TAB PO SCH (10:15)
[2019-02-04] MEDS: Amiodarone 200 MG TAB PO SCH ×2 (15:44→20:48)
--- NOTE | 2019-02-04 16:49 | PDOC.HOSPP ---
- Subjective Encounter Date: 02/04/19 Encounter Time: 07:20 Subjective: Pt seen for followup re: afib with RVR. No complaints. - Objective Vital Signs & Weight: Vital Signs (12 hours) Temp Pulse Resp BP BP Pulse Ox 02/04/19 15:51 98.2 F 87 16 146/83 H 96 02/04/19 14:20 74 16 94 L 02/04/19 12:23 97.7 F 73 16 143/59 H 94 L 02/04/19 07:55 97.5 F L 72 16 142/77 H 96 02/04/19 07:23 85 16 96 02/04/19 07:19 85 16 95 Weight Weight 197 lb 6.4 oz I&O: 02/03/19 02/04/19 02/05/19 06:59 06:59 06:59 Intake Total 780 Output Total 580 Balance 200 Result Diagrams: 02/04/19 05:15 02/04/19 05:15 Additional Labs: Labs and MARs reviewed by me EKG Reviewed by me: Yes (Tele: karin proctor) Hospitalist ROS - Review of Systems Cardiovascular: denies: chest pain, palpitations, orthopnea, paroxysmal noc. dyspnea, edema, light headedness Skin: denies: rash, lesions, dean, bruising - Medication Medications: Active Medications Generic Name Dose Route Start Last Admin Trade Name Freq PRN Reason Stop Dose Admin Hydrocodone Bitart/Acetaminophen 1 tab 02/03/19 09:44 02/04/19 15:42 [place] 10/325 PO 1 tab Q6H PRN Administration Moderate to Severe Pain (6-10) Allopurinol 100 mg 02/03/19 21:00 02/03/19 21:43 Zyloprim PO 100 mg QPM CR Administration Amiodarone HCl 200 mg 02/04/19 15:00 02/04/19 15:44 Cordarone PO 200 mg TID CR Administration Amlodipine Besylate 5 mg 02/04/19 09:00 02/04/19 09:37 Norvasc PO 5 mg QAM CR Administration Apixaban 5 mg 02/04/19 09:00 02/04/19 09:37 Eliquis PO 5 mg BID CR Administration Bupropion HCl 100 mg 02/04/19 09:00 02/04/19 09:37 Wellbutrin Sr PO 100 mg QAM CR Administration Diltiazem HCl 60 mg 02/03/19 14:00 02/04/19 15:43 Cardizem Sr PO 60 mg Q8HR CR Administration Duloxetine HCl 30 mg 02/04/19 09:00 02/04/19 09:37 Cymbalta PO 30 mg QAM CR Administration Fentanyl 12 mcg 02/04/19 13:00 02/04/19 13:22 Duragesic TD 12 mcg Q3D CR Administration Fentanyl 25 mcg 02/04/19 13:00 02/04/19 13:24 Duragesic TD 25 mcg Q3D CR Administration Diltiazem HCl 125 mg/ Sodium 125 mls @ 5 mls/hr 02/02/19 19:00 02/03/19 18:21 Chloride IVPB 125 mls INF CR Administration Protocol 5 MG/HR Ibuprofen 400 mg 02/03/19 21:00 02/04/19 09:37 Motrin PO 400 mg BID CR Administration Ipratropium [place] 2 puff 02/04/19 15:00 02/04/19 14:20 Atrovent Hfa INH 2 puff QID-RT CR Administration Losartan Potassium 100 mg 02/04/19 09:00 02/04/19 09:37 Cozaar PO 100 mg DAILY CR Administration Mometasone Furoate 1 puff 02/03/19 18:30 02/04/19 07:23 Asmanex Hfa 100 Mcg INH 1 puff BID-RT CR Administration Mometasone Furoate/Formoterol Fumar 1 puff 02/03/19 18:30 02/04/19 07:19 Dulera 200 Mcg/5 Mcg Inhaler INH 1 puff BID-RT CR Administration Pantoprazole Sodium 40 mg 02/03/19 21:00 02/03/19 21:44 Protonix PO 40 mg QPM CR Administration Rosuvastatin Calcium 20 mg 02/03/19 21:00 02/03/19 21:43 Crestor PO 20 mg HS CR Administration Sodium Chloride 10 ml 02/02/19 21:00 02/04/19 09:39 Flush - Normal Saline IVF 10 ml Q12HR CR Administration Tamsulosin HCl 0.4 mg 02/04/19 09:00 02/04/19 09:37 Flomax PO 0.4 mg DAILY CR Administration Tizanidine HCl 4 mg 02/03/19 21:00 02/04/19 09:41 Zanaflex PO Not Given BID CR Zolpidem Tartrate 10 mg 02/02/19 21:18 02/03/19 21:45 Ambien PO 10 mg HS PRN Administration Insomnia - Exam General - other findings: Obese Eye: anicteric sclera ENT: moist mucosa Neck: supple, no thyromegaly Heart: no rubs, irregular Respiratory: CTAB Gastrointestinal: soft, non-tender Skin: no rashes Psychiatric: normal affect, normal behavior Hosp A/P (1) Atrial fibrillation with RVR Code(s): I48.91 - UNSPECIFIED ATRIAL FIBRILLATION Status: Acute (2) Gout Code(s): M10.9 - GOUT, UNSPECIFIED Status: Chronic (3) Dyslipidemia Code(s): E78.5 - HYPERLIPIDEMIA, UNSPECIFIED Status: Chronic (4) HTN (hypertension) Code(s): I10 - ESSENTIAL (PRIMARY) HYPERTENSION Status: Chronic Qualifiers: Hypertension type: essential hypertension Qualified Code(s): I10 - Essential (primary) hypertension - Plan out of bed/ambulate Plan for cardioversion tomorrow. Pt has been started on apixaban. Felecainide discontinued, amiodarone started. Continue allopurinol. Continue statin.
[2019-02-04] MEDS: Diltiazem 125 MG in Sodium Chloride 0.9% 100 ML IVPB SCH (17:39)
[2019-02-04] MEDS: Allopurinol 100 MG TAB PO SCH (20:46)
[2019-02-04] MEDS: Rosuvastatin 20 MG TAB PO SCH (20:46)
[2019-02-04] MEDS: Zolpidem Tartrate 5 MG TAB PO PRN (22:32)
[2019-02-05 05:15] LABS: #Eosinphils 0.3 thou/uL (0.0-0.7); #Lymphocytes 1.2 thou/uL (1.20-3.40); #Monocytes 0.6 thou/uL (0.11-0.59); #Neutrophils 5.2 thou/uL (1.40-6.50); %Basophils 0.1 % (0.0-1.0); %Lymphocytes 16.8 % (21.0-51.0); %Monocytes 8.5 % (0.0-10.0); %Neutrophils 70.5 % (42.0-75.0); Hemoglobin 11.6 g/dL (14.0-18.0); Mean Corpuscular HGB CONC 33.3 g/dL (32.0-36.0); Mean Corpuscular Hemoglobin 32.3 pg (27.0-31.0); Mean Corpuscular Volume 96.8 fL (78.0-98.0); Mean Platelet Volume 6.1 fL (7.4-10.4); Platelet Count 247 thou/uL (130-400); RBC Distribution Width 13.4 % (11.5-14.5); White Blood Cell (WBC) Count 7.4 thou/uL (4.8-10.8)
[2019-02-05 05:25] LABS: Anion Gap 13 mmol/L (10-20); BUN (Urea Nitrogen) 16 mg/dL (8.4-25.7); Calc. Creatinine Clearance 67 mL/min (70-130); Calcium 8.8 mg/dL (7.8-10.44); Carbon Dioxide 25 mmol/L (23-31); Chloride 100 mmol/L (98-107); Estimated GFR-MDRD 63; Glucose 103 mg/dL (83-110); Potassium 4.2 mmol/L (3.5-5.1); Sodium 134 mmol/L (136-145)
[2019-02-05] MEDS: Diltiazem HCl SR 60 mg Capsule PO SCH ×2 (05:42→15:23)
[2019-02-05 06:07] VITALS: BMI 30.7
[2019-02-05] MEDS: Mometasone 100 MCG HFA INHALER INH SCH ×2 (07:18→19:35)
[2019-02-05] MEDS: Mometasone/Formoterol 120 PUFF INHALER INH SCH ×2 (07:22→19:36)
[2019-02-05] MEDS: Ipratropium Oral Inhaler INH SCH ×4 (07:23→19:37)
--- NOTE | 2019-02-05 08:33 | CON ---
DATE OF CONSULTATION: 02/04/[address] 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 PROBLEMS: 1. Persistent atrial fibrillation. a. Previous flecainide use for rhythm maintenance. b. Now in atrial fibrillation for over 3 weeks. 2. Near normal left ventricular function with ejection fraction of 60% to 65%, mild MR and TR on echo in September 2009. An echo on 11/21/2004, had EF also 55% to 60%. 3. History of hypertension and dyslipidemia. ALLERGIES: NONE NOTED. MEDICATIONS: At home included; 1. Fentanyl. 2. Zolpidem. 3. Bupropion. 4. Allopurinol. 5. Flecainide 100 mg twice a day. 6. Duloxetine. 7. Amlodipine. 8. Omeprazole. 9. Hydrocodone. 10. Rosuvastatin. 11. Testosterone. 12. Tizanidine. 13. Tylenol. 14. Beclomethasone. 15. Fluticasone. 16. Tamsulosin. 17. Olmesartan. 18. Ipratropium. 19. Trazodone. SUBJECTIVE: Mr. Eaton is here with symptoms of recurrent palpitations. He was found to be in atrial fibrillation with rapid ventricular response. He was maintained on flecainide in the past, but then we have decreased flecainide back last year. Now, he returned with repeated palpitations on November 25, 2018. At that point, flecainide was again increased back to 100 twice a day despite condition with atrial fibrillation with rapid rates. He was admitted with palpitations, tachycardia, and IV diltiazem was used to slow his heart rate down. He continues in atrial fibrillation nevertheless. He does not pass out. No stroke-like symptoms. No neurological deficit. He denies angina. No fever, chills, cough. No bleeding issues. Respiratory system unremarkable. PAST MEDICAL HISTORY: As above. SOCIAL HISTORY: The patient denies smoking, EtOH, or drug abuse. FAMILY HISTORY: Not contributory. OBJECTIVE DATA: VITAL SIGNS: Blood pressure 146/83, heart rate 87, respiratory rate 16, temperature 98.2 degrees Fahrenheit. GENERAL: Alert and oriented man, in no apparent distress. NECK: Supple. Jugular veins not distended. CHEST: Coarse without crackles. HEART: Sounds are regular rate and rhythm. No murmur or gallop. ABDOMEN: Benign. Bowel sounds positive. EXTREMITIES: Without edema, clubbing, or cyanosis. Pulses are adequate. NEUROLOGIC: The patient is nonfocal. MUSCULOSKELETAL: Without joint swelling or deformity. SKIN: Without rash. DATABASE: EKGs reviewed, reveals atrial fibrillation with rapid ventricular rates. LABORATORY DATA: White cell count 6.3, hemoglobin 11.7, platelet count is 276. Sodium 136, potassium 4, BUN is 19, creatinine 1.05. Troponin I 0.027 and 0.028 consecutively. BNP is 140. The chest x-ray results shows mild cardiomegaly and vascular engorgement. 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 He in the past declined anticoagulation. Now he is on Eliquis full dose his flecainide is not sufficient to maintain normal rhythm. We discussed the treatment options. I detailed the benefits of pulmonary venous isolation procedure, but this point he would like to think more about that instead I would like to give another trial of antiarrhythmic. I think the only more potent drug other than flecainide, would be amiodarone. I detailed this drug for him which he is familiar with. We discussed potential risk for pulmonary, thyroid, and liver toxicity. He understands and would like to proceed. We will place him on amiodarone and stop flecainide. We might consider a DAYANARA-guided cardioversion tomorrow. He may need monitoring to avoid excessive bradycardia while the flecainide is washing out at least for next 24 to 48 hours. Long-term consider pulmonary venous isolation. Periodic pulmonary, thyroid, and liver function tests as well as optic nerve checks with early morning advice. Job ID: [id number] [facility]
[2019-02-05] MEDS: HYDROcodone/Acetaminophen 10/325 mg Tablet PO PRN ×2 (09:02→18:03)
[2019-02-05] MEDS: Amlodipine 5 MG TAB PO SCH (09:03)
[2019-02-05] MEDS: Apixaban 5 MG TAB PO SCH ×2 (09:03→21:05)
[2019-02-05] MEDS: Amiodarone 200 MG TAB PO SCH ×3 (09:04→21:04)
[2019-02-05] MEDS: Losartan 25 MG TAB PO SCH (09:04)
[2019-02-05] MEDS: Bupropion 100 MG SR TAB PO SCH (09:04)
[2019-02-05] MEDS: DULoxetine 30 MG CAP PO SCH (09:04)
[2019-02-05] MEDS: tiZANidine HCl 4 MG TAB PO SCH ×2 (09:04→21:13)
[2019-02-05] MEDS: Ibuprofen 200 MG TAB PO SCH ×2 (09:05→21:05)
[2019-02-05] MEDS: Tamsulosin HCl 0.4 MG CAP PO SCH (09:05)
--- NOTE | 2019-02-05 13:12 | PDOC.CPN ---
- Subjective Date: 02/05/19 Time: 13:10 Interval history: EP PROGRESS NOTE: 02/05/19 Follow up for atrial fibrillation. Seen in PACU immediately after CV. Waking up from anesthesia - Review of Systems ROS unobtainable: due to mental status - Objective Allergies/Adverse Reactions: Allergies Allergy/AdvReac Type Severity Reaction Status Date / Time No Known Allergies Allergy Verified 01/07/18 14:27 Visit Medications: Current Medications Acetaminophen (Tylenol) 650 mg PO Q4H PRN PRN Reason: Headache/Fever/Mild Pain (1-3) Acetaminophen (Tylenol) 500 mg PO Q6H PRN PRN Reason: Mild Pain (1-3) Hydrocodone Bitart/Acetaminophen ([place] 10/325) 1 tab PO Q6H PRN PRN Reason: Moderate to Severe Pain (6-10) Last Admin: 02/05/19 09:02 Dose: 1 tab Allopurinol (Zyloprim) 100 mg PO QPM [facility] Last Admin: 02/04/19 20:46 Dose: 100 mg Amiodarone HCl (Cordarone) 200 mg PO TID [facility] Last Admin: 02/05/19 09:04 Dose: 200 mg Amlodipine Besylate (Norvasc) 5 mg PO QAM [facility] Last Admin: 02/05/19 09:03 Dose: 5 mg Apixaban (Eliquis) 5 mg PO BID [facility] Last Admin: 02/05/19 09:03 Dose: 5 mg Bisacodyl (Dulcolax) 10 mg PO DAILYPRN PRN PRN Reason: Constipation Bupropion HCl (Wellbutrin Sr) 100 mg PO QAM [facility] Last Admin: 02/05/19 09:04 Dose: 100 mg Diltiazem HCl (Cardizem Sr) 60 mg PO Q8HR [facility] Last Admin: 02/05/19 05:42 Dose: 60 mg Duloxetine HCl (Cymbalta) 30 mg PO QAM [facility] Last Admin: 02/05/19 09:04 Dose: 30 mg Fentanyl (Duragesic) 12 mcg TD Q3D [facility] Last Admin: 02/04/19 13:22 Dose: 12 mcg Fentanyl (Duragesic) 25 mcg TD Q3D [facility] Last Admin: 02/04/19 13:24 Dose: 25 mcg Diltiazem HCl 125 mg/ Sodium (Chloride) 125 mls @ 5 mls/hr IVPB INF [facility]; Protocol Last Admin: 02/04/19 17:39 Dose: 125 mls Ibuprofen (Motrin) 400 mg PO BID [facility] Last Admin: 02/05/19 09:05 Dose: 400 mg Ipratropium [place] (Atrovent Hfa) 2 puff INH QID-RT CR Last Admin: 02/05/19 10:28 Dose: 2 puff Losartan Potassium (Cozaar) 100 mg PO DAILY [facility] Last Admin: 02/05/19 09:04 Dose: 100 mg Mometasone Furoate (Asmanex Hfa 100 Mcg) 1 puff INH BID-RT CR Last Admin: 02/05/19 07:18 Dose: 1 puff Mometasone Furoate/Formoterol Fumar (Dulera 200 Mcg/5 Mcg Inhaler) 1 puff INH BID-RT [facility] Last Admin: 02/05/19 07:22 Dose: 1 puff Pantoprazole Sodium (Protonix) 40 mg PO QPM [facility] Last Admin: 02/04/19 20:46 Dose: 40 mg Rosuvastatin Calcium (Crestor) 20 mg PO HS [facility] Last Admin: 02/04/19 20:46 Dose: 20 mg Sodium Chloride (Flush - Normal Saline) 10 ml IVF Q12HR [facility] Last Admin: 02/05/19 09:05 Dose: Not Given Sodium Chloride (Flush - Normal Saline) 10 ml IVF PRN PRN PRN Reason: Saline Flush Tamsulosin HCl (Flomax) 0.4 mg PO DAILY [facility] Last Admin: 02/05/19 09:05 Dose: 0.4 mg Tizanidine HCl (Zanaflex) 4 mg PO BID [facility] Last Admin: 02/05/19 09:04 Dose: 4 mg Trazodone HCl (Desyrel) 25 mg PO HS PRN PRN Reason: Insomnia Zolpidem Tartrate (Ambien) 10 mg PO HS PRN PRN Reason: Insomnia Last Admin: 02/04/19 22:32 Dose: 10 mg Vital Signs & Weight: Vital Signs Temp Pulse Resp BP Pulse Ox 02/05/19 10:28 75 16 96 02/05/19 08:50 97.5 F L 78 18 130/60 95 02/05/19 07:23 77 16 98 02/05/19 07:22 77 16 96 02/05/19 07:18 77 16 96 02/05/19 03:27 97.7 F 70 18 108/59 L 94 L Weight 193 lb - Physical Exam General: no apparent distress HEENT: mucus membranes moist Neck: supple neck, midline trachea, no JVD/HJR Cardiac: regular rate and rhythm, no murmur Lungs: clear to auscultation Abdomen: unremarkable Extremities: no edema - Labs Result Diagrams: 02/05/19 04:46 02/05/19 04:46 Troponin/CKMB Troponin I 0.028 ng/mL (< 0.028) 02/02/19 23:25 - Telemetry Sinus rhythms and dysrhythmias: sinus rhythm (PACs) - Assessment/Plan Assessment/Plan: 1. Atrial fibrillation - refractory to flecainide 100mg BID. - loading on Amiodarone. Currently on 200mg PO TID. Taper over 1 month to goal dose of 200mg PO daily. - s/p CV 10/25 AM. Successful CV to SR - some bradycardia seen with IV and PO diltiazem, amio loading, and flecainide washout. diltiazem stopped. 2. CHADS2-VASC: <2 - started on Eliquis 5mg BID. No suspected bleeding issues Monitor HR overnight, if no further bradycardia could DC home Friday. Continue eliquis. 6 week follow up to be scheduled with [facility] Amio taper: 200mg PO TID x 1 week 200mg PO BID x 2 weeks 200mg PO daily thereafter
--- NOTE | 2019-02-05 15:34 | PDOC.HOSPP ---
- Subjective Subjective: Seen and examined. NPO for cardioversion. Denies palpitations. Denies chest pain or shortness of breath. Patient is anxious for cardioversion and states that he has had this done one time in the past. All questions answered in detail. - Objective Vital Signs & Weight: Vital Signs (12 hours) Temp Pulse Resp BP BP Pulse Ox 02/05/19 14:12 70 16 96 02/05/19 12:00 97.4 F L 54 L 16 93/56 L 97 02/05/19 10:28 75 16 96 02/05/19 08:50 97.5 F L 78 18 130/60 95 02/05/19 07:23 77 16 98 02/05/19 07:22 77 16 96 02/05/19 07:18 77 16 96 Weight Weight 193 lb I&O: 02/04/19 02/05/19 02/06/19 06:59 06:59 06:59 Intake Total 780 1790 Output Total 580 1170 Balance 200 620 Result Diagrams: 02/05/19 04:46 02/05/19 04:46 Hospitalist ROS - Review of Systems All other systems reviewed; all pertinent +/- noted in HPI/Subj - Medication Medications: Active Medications Generic Name Dose Route Start Last Admin Trade Name Freq PRN Reason Stop Dose Admin Hydrocodone Bitart/Acetaminophen 1 tab 02/03/19 09:44 02/05/19 09:02 [place] 10/325 PO 1 tab Q6H PRN Administration Moderate to Severe Pain (6-10) Allopurinol 100 mg 02/03/19 21:00 02/04/19 20:46 Zyloprim PO 100 mg QPM CR Administration Amiodarone HCl 200 mg 02/04/19 15:00 02/05/19 09:04 Cordarone PO 200 mg TID CR Administration Amlodipine Besylate 5 mg 02/04/19 09:00 02/05/19 09:03 Norvasc PO 5 mg QAM CR Administration Apixaban 5 mg 02/04/19 09:00 02/05/19 09:03 Eliquis PO 5 mg BID CR Administration Bupropion HCl 100 mg 02/04/19 09:00 02/05/19 09:04 Wellbutrin Sr PO 100 mg QAM CR Administration Duloxetine HCl 30 mg 02/04/19 09:00 02/05/19 09:04 Cymbalta PO 30 mg QAM CR Administration Fentanyl 12 mcg 02/04/19 13:00 02/04/19 13:22 Duragesic TD 12 mcg Q3D CR Administration Fentanyl 25 mcg 02/04/19 13:00 02/04/19 13:24 Duragesic TD 25 mcg Q3D CR Administration Ibuprofen 400 mg 02/03/19 21:00 02/05/19 09:05 Motrin PO 400 mg BID CR Administration Ipratropium [place] 2 puff 02/04/19 15:00 02/05/19 14:12 Atrovent Hfa INH 2 puff QID-RT CR Administration Losartan Potassium 100 mg 02/04/19 09:00 02/05/19 09:04 Cozaar PO 100 mg DAILY CR Administration Mometasone Furoate 1 puff 02/03/19 18:30 02/05/19 07:18 Asmanex Hfa 100 Mcg INH 1 puff BID-RT CR Administration Mometasone Furoate/Formoterol Fumar 1 puff 02/03/19 18:30 02/05/19 07:22 Dulera 200 Mcg/5 Mcg Inhaler INH 1 puff BID-RT CR Administration Pantoprazole Sodium 40 mg 02/03/19 21:00 02/04/19 20:46 Protonix PO 40 mg QPM CR Administration Rosuvastatin Calcium 20 mg 02/03/19 21:00 02/04/19 20:46 Crestor PO 20 mg HS CR Administration Sodium Chloride 10 ml 02/02/19 21:00 02/05/19 09:05 Flush - Normal Saline IVF Not Given Q12HR [facility] Tamsulosin HCl 0.4 mg 02/04/19 09:00 02/05/19 09:05 Flomax PO 0.4 mg DAILY CR Administration Tizanidine HCl 4 mg 02/03/19 21:00 02/05/19 09:04 Zanaflex PO 4 mg BID CR Administration Zolpidem Tartrate 10 mg 02/02/19 21:18 02/04/19 22:32 Ambien PO 10 mg HS PRN Administration Insomnia - Exam General Appearance: NAD, awake alert Eye: anicteric sclera ENT: normocephalic atraumatic Neck: supple, symmetric, no lymphadenopathy Heart: no murmur, no gallops, no rubs, irregular Respiratory: CTAB, no wheezes, no rales, no ronchi Gastrointestinal: soft, non-tender, non-distended, no guarding, no rigidity Extremities: no edema Skin: no lesions, no rashes Neurological: cranial nerve grossly intact, no weakness Musculoskeletal: normal tone, no muscle wasting Psychiatric: normal affect, A&O x 3 Hosp A/P (1) Atrial fibrillation with RVR Code(s): I48.91 - UNSPECIFIED ATRIAL FIBRILLATION Status: Acute (2) Gout Code(s): M10.9 - GOUT, UNSPECIFIED Status: Chronic (3) Lumbar spondylolysis Code(s): M43.06 - SPONDYLOLYSIS, LUMBAR REGION Status: Acute (4) S/P laminectomy Code(s): Z98.890 - OTHER SPECIFIED POSTPROCEDURAL STATES Status: Acute (5) Dyslipidemia Code(s): E78.5 - HYPERLIPIDEMIA, UNSPECIFIED Status: Chronic (6) HTN (hypertension) Code(s): I10 - ESSENTIAL (PRIMARY) HYPERTENSION Status: Chronic Qualifiers: Hypertension type: essential hypertension Qualified Code(s): I10 - Essential (primary) hypertension - Plan Plan: medical unit with telemetry EP/cardiology consultation, recommendations appreciated general cardiology consultation, recommendations appreciated cardioversion planned for this a.m. on amiodarone IV diltiazem oral and coagulation with Eliquis continue other home medications as able replace electrolytes as needed
--- NOTE | 2019-02-05 15:46 | OP ---
DATE OF PROCEDURE: 02/05/19 PROCEDURE: Electrical cardioversion. The patient remained sedated after undergoing transesophageal echo which revealed no evidence of intr acardiac thrombus. With 200 joules of synchronized cardioversion, he returned to sinus rhythm. Patient tolerated the pro cedure well.
[2019-02-05] MEDS: Allopurinol 100 MG TAB PO SCH (21:02)
[2019-02-05] MEDS: Rosuvastatin 20 MG TAB PO SCH (21:03)
[2019-02-05] MEDS: Zolpidem Tartrate 5 MG TAB PO PRN (21:03)
[2019-02-06] MEDS: HYDROcodone/Acetaminophen 10/325 mg Tablet PO PRN ×2 (00:02→11:04)
[2019-02-06] MEDS: Ipratropium Oral Inhaler INH SCH ×2 (07:17→10:47)
[2019-02-06] MEDS: Mometasone 100 MCG HFA INHALER INH SCH (07:18)
[2019-02-06] MEDS: Mometasone/Formoterol 120 PUFF INHALER INH SCH (07:18)
[2019-02-06] MEDS: DULoxetine 30 MG CAP PO SCH (08:32)
[2019-02-06] MEDS: Losartan 25 MG TAB PO SCH (08:32)
[2019-02-06] MEDS: Amlodipine 5 MG TAB PO SCH (08:32)
[2019-02-06] MEDS: Apixaban 5 MG TAB PO SCH (08:32)
[2019-02-06] MEDS: Ibuprofen 200 MG TAB PO SCH (08:32)
[2019-02-06] MEDS: Amiodarone 200 MG TAB PO SCH ×2 (08:33→14:45)
[2019-02-06] MEDS: Bupropion 100 MG SR TAB PO SCH (08:33)
[2019-02-06] MEDS: Tamsulosin HCl 0.4 MG CAP PO SCH (08:33)
[2019-02-06] MEDS: tiZANidine HCl 4 MG TAB PO SCH (08:33)
[2019-02-06 11:14] VITALS: BP 128/73; TEMP 97.9
--- NOTE | 2019-02-06 13:37 | PDOC.CPN ---
- Subjective Date: 02/06/19 Time: 13:41 Interval history: The pt seen and examined. No overnight events. No cardiac complaints. - Objective Allergies/Adverse Reactions: Allergies Allergy/AdvReac Type Severity Reaction Status Date / Time No Known Allergies Allergy Verified 01/07/18 14:27 Visit Medications: Current Medications Acetaminophen (Tylenol) 650 mg PO Q4H PRN PRN Reason: Headache/Fever/Mild Pain (1-3) Acetaminophen (Tylenol) 500 mg PO Q6H PRN PRN Reason: Mild Pain (1-3) Hydrocodone Bitart/Acetaminophen ([place] 10/325) 1 tab PO Q6H PRN PRN Reason: Moderate to Severe Pain (6-10) Last Admin: 02/06/19 11:04 Dose: 1 tab Allopurinol (Zyloprim) 100 mg PO QPM [facility] Last Admin: 02/05/19 21:02 Dose: 100 mg Amiodarone HCl (Cordarone) 200 mg PO TID [facility] Last Admin: 02/06/19 08:33 Dose: 200 mg Amlodipine Besylate (Norvasc) 5 mg PO QAM [facility] Last Admin: 02/06/19 08:32 Dose: 5 mg Apixaban (Eliquis) 5 mg PO BID [facility] Last Admin: 02/06/19 08:32 Dose: 5 mg Bisacodyl (Dulcolax) 10 mg PO DAILYPRN PRN PRN Reason: Constipation Bupropion HCl (Wellbutrin Sr) 100 mg PO QAM [facility] Last Admin: 02/06/19 08:33 Dose: 100 mg Duloxetine HCl (Cymbalta) 30 mg PO QAM [facility] Last Admin: 02/06/19 08:32 Dose: 30 mg Fentanyl (Duragesic) 12 mcg TD Q3D [facility] Last Admin: 02/04/19 13:22 Dose: 12 mcg Fentanyl (Duragesic) 25 mcg TD Q3D [facility] Last Admin: 02/04/19 13:24 Dose: 25 mcg Ibuprofen (Motrin) 400 mg PO BID [facility] Last Admin: 02/06/19 08:32 Dose: 400 mg Ipratropium [place] (Atrovent Hfa) 2 puff INH QID-RT [facility] Last Admin: 02/06/19 10:47 Dose: 2 puff Losartan Potassium (Cozaar) 100 mg PO DAILY [facility] Last Admin: 02/06/19 08:32 Dose: 100 mg Mometasone Furoate (Asmanex Hfa 100 Mcg) 1 puff INH BID-RT CR Last Admin: 02/06/19 07:18 Dose: 1 puff Mometasone Furoate/Formoterol Fumar (Dulera 200 Mcg/5 Mcg Inhaler) 1 puff INH BID-RT [facility] Last Admin: 02/06/19 07:18 Dose: 1 puff Pantoprazole Sodium (Protonix) 40 mg PO QPM CR Last Admin: 02/05/19 21:03 Dose: 40 mg Rosuvastatin Calcium (Crestor) 20 mg PO HS CR Last Admin: 02/05/19 21:03 Dose: 20 mg Sodium Chloride (Flush - Normal Saline) 10 ml IVF Q12HR [facility] Last Admin: 02/06/19 08:33 Dose: 10 ml Sodium Chloride (Flush - Normal Saline) 10 ml IVF PRN PRN PRN Reason: Saline Flush Tamsulosin HCl (Flomax) 0.4 mg PO DAILY [facility] Last Admin: 02/06/19 08:33 Dose: 0.4 mg Tizanidine HCl (Zanaflex) 4 mg PO BID [facility] Last Admin: 02/06/19 08:33 Dose: 4 mg Trazodone HCl (Desyrel) 25 mg PO HS PRN PRN Reason: Insomnia Zolpidem Tartrate (Ambien) 10 mg PO HS PRN PRN Reason: Insomnia Last Admin: 02/05/19 21:03 Dose: 10 mg Vital Signs & Weight: Vital Signs Temp Pulse Resp BP BP Pulse Ox 02/06/19 11:08 97.9 F 60 18 128/73 97 02/06/19 10:47 64 16 92 L 02/06/19 08:16 97.5 F L 62 18 145/73 H 95 02/06/19 07:17 67 16 95 02/06/19 04:00 97.8 F 56 L 17 140/69 97 Weight 199 lb 12.8 oz - Physical Exam General: alert & oriented x3 HEENT: mucus membranes moist Neck: supple neck Cardiac: regular rate and rhythm, S1/S2 Lungs: clear to auscultation Neuro: cranial nerve 2-12 intact Abdomen: unremarkable Skin: clear Musculoskeletal: normal range of motion - Labs Result Diagrams: 02/05/19 04:46 02/05/19 04:46 Troponin/CKMB Troponin I 0.028 ng/mL (< 0.028) 02/02/19 23:25 - Telemetry Sinus rhythms and dysrhythmias: sinus rhythm - Assessment/Plan Assessment/Plan: 1. Atrial fibrillation with s/p DCCV on 02/05/2019 - remains in SR; On Amiodaonrne 200mg PO TID. Taper over 1 month to goal dose of 200mg PO daily. On Eliquis 5mg BId. 2. HTN - stable with current med 3. HLD - on statin 4. Gout MAR reviewed * The pt will f/u with Dr Cavanaugh's office within 2 wks.
--- NOTE | 2019-02-06 18:37 | DIS ---
DATE OF ADMISSION: 02/02/2019 DATE OF DISCHARGE: 02/06/2019 REASON FOR HOSPITALIZATION: Atrial fibrillation with rapid ventricular response. SIGNIFICANT FINDINGS: The patient was found to have atrial fibrillation with rapid ventricular response. PROCEDURES PERFORMED/TREATMENTS RENDERED: The patient had maximum medical therapy from Cardiology, who recommended the patient undergo cardioversion-this was performed on 02/05/2019, without complications-please see full operative report for details. The patient was recommended safe for discharge by Cardiology on 02/06/2019. Cardiomyopathy regimen and atrial fibrillation regimen were selected by Cardiology and sent to his preferred pharmacy. CONDITION ON DISCHARGE: Stable. SPECIFIC INSTRUCTIONS FOR THE PATIENT/FAMILY: 1. The patient is recommended to take all medications as directed, to be re-evaluated by primary care physician and Cardiology in the outpatient clinic in the next 1 to 2 weeks. 2. The patient is recommended to follow up with primary care physician in the next 5 to 7 days. 3. The patient is recommended to follow up with Cardiology in the next 1 to 2 weeks. 4. The patient is recommended to return to acute care hospital immediately if signs or symptoms return, worsen, or any other new symptoms occur. 5. The patient recommended to take all medications as directed. DISCHARGE MEDICATION LIST: Please see full medication list for details with the following changes, 1. Eliquis one tablet p.o. b.i.d. 2. Amiodarone with taper as follows 200 mg tablet p.o. t.i.d. for one week, then 200 mg tablet p.o. b.i.d. for two weeks, then 200 mg tablet daily afterwards. 3. All other home medications continued without changes. Greater than 35 minutes spent coordinating care and discharge process Job ID: [id number] [facility]
--- NOTE | 2019-02-08 11:45 | OP ---
DATE OF PROCEDURE: 02/05/2019 PROCEDURE PERFORMED: Transesophageal echocardiogram. INDICATION: An 78-year-old gentleman with paroxysmal atrial fibrillation. DESCRIPTION OF PROCEDURE: The patient was taken to the PACU. The patient was sedated by Anesthesiology. A transesophageal probe was placed into the distal esophagus and stomach. Echocardiographic images were obtained. The transesophageal probe was removed. FINDINGS: 1. Normal left ventricular systolic function. 2. Marked left atrial enlargement. 3. Normal mitral aortic valves. 4. Mild mitral regurgitation. 5. Mild tricuspid regurgitation. 6. No thrombus in the left atrium and left atrial appendage. 7. Atherosclerotic debris in the descending aorta. IMPRESSION: No formed thrombus in the left atrium and left atrial appendage. Job ID: [id number]
--- NOTE | 2019-02-09 10:30 | EKG ---
Test Reason : POST DAYANARA/CARDIOVERSI Blood Pressure : / mmHG Vent. Rate : 053 BPM Atrial Rate : 053 BPM P-R Int : 222 ms QRS Dur : 104 ms QT Int : 430 ms P-R-T Axes : -02 -01 036 degrees QTc Int : 403 ms Sinus bradycardia with 1st degree A-V block Otherwise normal ECG Confirmed by TAVARES RASCON, ANATOLY ([id number]) on 02/09/2019 10:29:55 AM Referred By: UBALDO/JESSICA Confirmed By:ANATOLY CHAPIN MD
== END 2019-02-06 14:57 | disposition home or self-care (01) | DRG 309 ==
LOC: ERS 16:32 → 2NO 20:08
PROVIDERS: ADMIT Internal Medicine; ATTEND Internal Medicine
PROC: 5A2204Z Restoration of Cardiac Rhythm, Single (ICD-10-PCS; principal; 2019-02-05)
PROC: B24BZZ4 Ultrasonography of Heart with Aorta, Transesophageal (ICD-10-PCS; 2019-02-05)
DX: I48.0 Paroxysmal atrial fibrillation (principal); E87.1 Hypo-osmolality and hyponatremia; I42.9 Cardiomyopathy, unspecified; G89.29 Other chronic pain; E78.5 Hyperlipidemia, unspecified; I10 Essential (primary) hypertension; C61 Malignant neoplasm of prostate; Z96.642 Presence of left artificial hip joint; F32.9 Major depressive disorder, single episode, unspecified; E66.9 Obesity, unspecified; M10.9 Gout, unspecified; M43.06 Spondylolysis, lumbar region; E78.00 Pure hypercholesterolemia, unspecified; Z90.49 Acquired absence of other specified parts of digestive tract; Z79.891 Long term (current) use of opiate analgesic; Z79.899 Other long term (current) drug therapy; Z98.1 Arthrodesis status; Z68.31 Body mass index [BMI] 31.0-31.9, adult; Z87.891 Personal history of nicotine dependence
CPT/HCPCS: 36415; 71045; 80048; 80053; 83880; 84484; 85025; 92960; 93005; 93010; 93312; 96361; 96374; J1650; J3490

== ENCOUNTER 2019-02-28 17:31 | Inpatient (IN) | payer MEDICARE, BC ==
[~2019-02-28 17:31] MED LIST: Iopamidol-370 76% 500 ML 1 ML ONE
[2019-02-28 18:16] LABS: #Eosinphils 0.1 thou/uL (0.0-0.7); #Lymphocytes 1.1 thou/uL (1.20-3.40); #Monocytes 0.7 thou/uL (0.11-0.59); #Neutrophils 7.8 thou/uL (1.40-6.50); %Basophils 0.4 % (0.0-1.0); %Eosinophils 1.3 % (0.0-10.0); %Lymphocytes 11.5 % (21.0-51.0); %Monocytes 6.9 % (0.0-10.0); %Neutrophils 79.9 % (42.0-75.0); Hemoglobin 9.7 g/dL (14.0-18.0); Mean Corpuscular HGB CONC 33.2 g/dL (32.0-36.0); Mean Corpuscular Hemoglobin 32.7 pg (27.0-31.0); Mean Corpuscular Volume 98.4 fL (78.0-98.0); Mean Platelet Volume 5.9 fL (7.4-10.4); Platelet Count 270 thou/uL (130-400); RBC Distribution Width 12.9 % (11.5-14.5); Red Blood Cell (RBC) Count 2.95 mill/uL (4.70-6.10); White Blood Cell (WBC) Count 9.7 thou/uL (4.8-10.8)
[2019-02-28 18:35] LABS: Bilirubin Negative (Negative); Blood, Urine Negative (Negative); Clarity Clear (Clear); Glucose, Urine (Dipstick) Normal (Negative); Leukocyte Negative Leu/uL (Negative); Nitrite Negative (Negative); Protein, Urine (Dipstick) Negative (Neg-Trace); Urobilinogen 3 mg/dL (Less than 2)
[2019-02-28 18:45] LABS: ALT (SGPT) 10 U/L (8-55); AST (SGOT) 12 U/L (5-34); Albumin 3.6 g/dL (3.4-4.8); Alkaline Phosphatase 71 U/L (40-110); Anion Gap 12 mmol/L (10-20); BUN (Urea Nitrogen) 14 mg/dL (8.4-25.7); Bilirubin, Total 0.3 mg/dL (0.2-1.2); Calc. Creatinine Clearance 0 mL/min (70-130); Calcium 8.5 mg/dL (7.8-10.44); Carbon Dioxide 28 mmol/L (23-31); Chloride 100 mmol/L (98-107); Estimated GFR-MDRD 62; Globulin 2.8 g/dL (2.4-3.5); Glucose 109 mg/dL (83-110); Lipase 12 U/L (8-78); Magnesium 1.7 mg/dL (1.6-2.6); Protein, Total 6.4 g/dL (5.8-8.1); Sodium 136 mmol/L (136-145)
--- NOTE | 2019-02-28 18:54 | RAD ---
CHEST ONE VIEW: History: Shortness of breath. Comparison: 02-02-19 FINDINGS: Elongation of the aorta. Enlarged cardiac silhouette. The pulmonary vessels are prominent. Costophren ic angles are clear. Chronic change in the lung parenchyma. Possible focal right midlung infiltrate. No pneumothorax. Chronic changes involving the right clavicle. IMPRESSION: 1. Cardiomegaly. 2. Right midlung infiltrate. Continued surveillance to ensure resolution. POS: PPP
[2019-02-28 19:01] LABS: CKMB 2.7 ng/mL (0-6.6)
[2019-02-28] MEDS ORDERED: Cefepime 2 GM VIAL ONE (19:34)
[2019-02-28] MEDS ORDERED: Furosemide 40 MG/4 ML VIAL ONE (19:34)
[2019-02-28 19:47] LABS: INR-International Normal Ratio 1.3
[2019-02-28 19:48] LABS: PTT 40.7 SEC (22.9-36.1)
[2019-02-28 19:49] LABS: D-Dimer Test 0.63 *mcg/mL (0.27-0.43)
[2019-02-28] MEDS ORDERED: Senokot S 8.6-50 MG TAB PO PRN (20:39)
[2019-02-28] MEDS ORDERED: Acetaminophen 325 MG TAB PO PRN (20:39)
--- NOTE | 2019-02-28 21:53 | CT ---
CT PULMONARY ANGIOGRAM WITH IV CONTRAST AND 3D POSTPROCESSING: Date: 02/28/19 HISTORY: Dyspnea, hypoxia. FINDINGS: There is good contrast opacification of the pulmonary arterial vasculature without filling defects to suggest pulmonary embolism. There are vascular calcifications without [id number] of thoracic aortic a neurysm or dissection. No pericardial or left pleural effusion seen. There is a small right pleural e ffusion. There are patchy air space opacities in the right upper lobe and right lower lobe. There is an 8 mm parenchymal nodule in the left lower lobe. There are mild degenerative changes in the spine. IMPRESSION: 1. No CT evidence of pulmonary embolism. 2. Findings suspicious for right-sided pneumonia. 3. Indeterminate 8 mm left lower lobe lung nodule. A follow-up CT scan is recommended in [address] POS: [place]
[2019-02-28 23:03] LABS: Troponin I 0.049 ng/mL (< 0.028)
[2019-02-28] MEDS ORDERED: fentaNYL 75 mcg/hour Patch TD SCH (23:15)
[2019-02-28] MEDS ORDERED: Allopurinol 100 MG TAB PO SCH (23:45)
[2019-02-28] MEDS: Famotidine 20 MG TAB PO SCH (23:50)
[2019-02-28] MEDS: HYDROcodone/Acetaminophen 10/325 mg Tablet PO PRN (23:50)
[2019-02-28] MEDS: traZODone HCl 50 MG TAB PO PRN (23:52)
[2019-02-28] MEDS: Zolpidem Tartrate 5 MG TAB PO PRN (23:52)
--- NOTE | 2019-03-01 01:19 | HP ---
PRIMARY CARE PHYSICIAN: Chico Chinchilla MD CHIEF COMPLAINT: Shortness of breath. HISTORY OF PRESENT ILLNESS: Mr. Eaton is a very pleasant 78-year-old man, who reported to the emergency room today for evaluation of worsening dyspnea and some hypoxia today. Per , the patient had O2 saturations at 84% when measured with a pulse ox at home. He was recently discharged about 2 to 3 weeks ago for multi-day stay for atrial fibrillation and his medications were changed during his past hospitalization. He was taken off flecainide and titrated on amiodarone. He denies seeing either Dr. Cavanaugh or Dr. Sexton after admission and reports that he has followup appointments with them in March. He had a pulmonary function test [address] Serna. The patient reports that he was told he did not have COPD, but he may have some longstanding asthma. He has had 6 days of nonproductive cough and influenza like symptoms began yesterday with some ankle edema over the last week. He reports that he normally gets some leg edema with driving in the car, but it usually goes down and this time, he went to [place] and back on the same day, legs with some edema, which has not resolved as much as it normally does. PAST MEDICAL HISTORY: Pertinent for hyperlipidemia, hypertension, prostate cancer, atrial fibrillation, recent medication changes. The patient had a chest x-ray and a CTA of the chest, which both demonstrate some right-sided pneumonia. He does have an 8 mm parenchymal nodule on the left lower lobe, which will need further evaluation in 3 months. He had no CT evidence of any pulmonary emboli. The patient was started on some cefepime, DuoNeb and some Lasix. The patient was reporting that he felt better during the hospitalist evaluation. He will be admitted to the telemetry unit for further management. REVIEW OF SYSTEMS: The patient reports some chest tightness. Reports dyspnea. Reports hypoxia. Reports dyspnea on exertion. Reports lower leg edema. Reports palpitations. Reports cough, shortness of breath. Denies any abdominal pain, nausea, vomiting, or diarrhea. All systems are reviewed and are negative unless mentioned above or in HPI. PAST MEDICAL HISTORY: Please see HPI. PAST SURGICAL HISTORY: Left hip replacement, laminectomy x4, wrist reconstruction bilaterally, appendectomy. PSYCHIATRIC HISTORY: Includes depression. SOCIAL HISTORY: Lives at home with his family. Drinks socially. Denies any drug use. Denies any smoking history. ALLERGIES: NONE. HOME MEDICATIONS: 1. Allopurinol. 2. Cordarone. 3. Amlodipine. 4. Qvar RediHaler. 5. Wellbutrin XL 100 mg p.o. q.a.m. 6. Cymbalta. 7. Fentanyl patch. 8. Breo inhaler. 9. Hydrocodone 10/325. 10. Motrin. 11. Atrovent inhaler. 12. Olmesartan/hydrochlorothiazide. 13. Prilosec. 14. Crestor. 15. Flomax. 16. Testosterone gel. 17. Trazodone. 18. Ambien. 19. Eliquis. PHYSICAL EXAMINATION: VITAL SIGNS: Blood pressure 144/74, pulse is 62, respiratory rate 21, pO2 saturations 92% on room air, temperature 98.2. CONSTITUTIONAL: The patient is nontoxic appearing. He is alert and oriented to person, place, and time. HEENT: Head is atraumatic and normocephalic. Eyelids are normal to inspection. Extraocular muscles are intact. ENT, mouth exam is normal. Mucous membranes are moist. NECK: Normal range of motion. Trachea is midline. RESPIRATORY: Chest expansion is equal. Crackles in bilateral bases, rhonchi. CARDIOVASCULAR: Irregularly irregular. Heart sounds are normal. ABDOMEN: Nontender, bowel sounds are heard. BACK: Normal range of motion. No tenderness. EXTREMITIES: Upper extremity, motor strength is normal. Sensation intact. Radial pulses are normal. Lower extremity, motor strength is normal. Range of motion normal. Pedal pulses are normal. No calf tenderness. Bilateral ankle swelling +1. NEUROLOGIC: The patient is oriented to person, place, and time. Speech is normal. SKIN: Which was visualized, is warm, dry, normal in color. PSYCHIATRIC: Normal affect. He is oriented to person, place, and time. DIAGNOSTIC DATA: EKG in the emergency room shows beats per minute 72 with a junctional rhythm and occasional PVCs. LABORATORY DATA: White blood cell count is 9.7, hemoglobin 9.7, hematocrit 29.0, and platelet count 270. PT 16, INR 1.3, APTT 40.7. D-dimer 0.63. Chemistry unremarkable except for troponin x2, which are indeterminate. BNP 323.6. Urine is also unremarkable. PLAN/ASSESSMENT: 1. Hypoxia with pneumonia. Cefepime was ordered in the ER. We will continue this. Andrewbs q.6 scheduled. The patient reports that he had an echocardiogram in Dr. Cavanaugh's office within the last month. We have requested those records. We will restart his home inhalers. We will trend troponins as they were indeterminate, most likely demand ischemia. 2. History of atrial fibrillation, recently converted to amiodarone from flecainide, is on Eliquis. We will continue these. 3. History of gout. We will continue the allopurinol. 4. History of hypertension. Restart home medications. 5. History of chronic back pain. We will restart his pain medication. 6. History of insomnia. We will restart his home medications. 7. History of prostate cancer. He is on Flomax. We will continue this. 8. History of hyperlipidemia. We will restart his Crestor. 9. With the patient's cardiac history, cardiology consult in the a.m. especially after the echocardiogram reviewed might be in order. Oxygen is supplemental as needed to keep O2 saturations above 92%. 10. The patient is already on gastrointestinal and deep venous thrombosis prophylaxis. We will continue this. Job ID: [id number]
[2019-03-01 01:49] LABS: Troponin I 0.045 ng/mL (< 0.028)
[2019-03-01 03:07] VITALS: BMI 33.1
[2019-03-01 06:27] LABS: #Eosinphils 0.2 thou/uL (0.0-0.7); #Lymphocytes 1.2 thou/uL (1.20-3.40); #Monocytes 0.8 thou/uL (0.11-0.59); #Neutrophils 7.6 thou/uL (1.40-6.50); %Basophils 0.3 % (0.0-1.0); %Eosinophils 2.1 % (0.0-10.0); %Lymphocytes 12.5 % (21.0-51.0); %Monocytes 8.1 % (0.0-10.0); %Neutrophils 77.1 % (42.0-75.0); Hemoglobin 9.8 g/dL (14.0-18.0); Mean Corpuscular HGB CONC 33.1 g/dL (32.0-36.0); Mean Corpuscular Hemoglobin 32.3 pg (27.0-31.0); Mean Corpuscular Volume 97.5 fL (78.0-98.0); Mean Platelet Volume 5.9 fL (7.4-10.4); Platelet Count 291 thou/uL (130-400); RBC Distribution Width 12.6 % (11.5-14.5); Red Blood Cell (RBC) Count 3.05 mill/uL (4.70-6.10); White Blood Cell (WBC) Count 9.9 thou/uL (4.8-10.8)
[2019-03-01] MEDS ORDERED: Mometasone 100 MCG HFA INHALER INH SCH (06:30)
[2019-03-01 06:49] LABS: ALT (SGPT) 11 U/L (8-55); AST (SGOT) 13 U/L (5-34); Albumin 3.8 g/dL (3.4-4.8); Alkaline Phosphatase 72 U/L (40-110); Anion Gap 13 mmol/L (10-20); BUN (Urea Nitrogen) 13 mg/dL (8.4-25.7); Bilirubin, Total 0.4 mg/dL (0.2-1.2); Calc. Creatinine Clearance 68 mL/min (70-130); Calcium 9.2 mg/dL (7.8-10.44); Carbon Dioxide 31 mmol/L (23-31); Chloride 100 mmol/L (98-107); Estimated GFR-MDRD 62; Globulin 2.9 g/dL (2.4-3.5); Glucose 98 mg/dL (83-110); Potassium 3.9 mmol/L (3.5-5.1); Protein, Total 6.7 g/dL (5.8-8.1); Sodium 140 mmol/L (136-145)
[2019-03-01] MEDS: Mometasone/Formoterol 120 PUFF INHALER INH SCH ×2 (07:23→19:38)
[2019-03-01] MEDS: Apixaban 5 MG TAB PO SCH ×2 (11:09→21:15)
[2019-03-01] MEDS: Famotidine 20 MG TAB PO SCH ×2 (11:09→21:15)
[2019-03-01] MEDS: DULoxetine 30 MG CAP PO SCH (11:09)
[2019-03-01] MEDS: Bupropion 100 MG SR TAB PO SCH (11:09)
[2019-03-01] MEDS: Amlodipine 5 MG TAB PO SCH (11:09)
[2019-03-01] MEDS: Amiodarone 200 MG TAB PO SCH (11:09)
[2019-03-01] MEDS: Tamsulosin HCl 0.4 MG CAP PO SCH (11:09)
[2019-03-01] MEDS: Cefepime 2 GM in Sodium Chloride 0.9% 100 ML IVPB SCH ×2 (11:10→21:15)
[2019-03-01] MEDS: Polyethylene Glycol 3350 17 GM Packet PO SCH ×2 (11:10→21:17)
[2019-03-01] MEDS: HYDROcodone/Acetaminophen 10/325 mg Tablet PO PRN ×2 (11:10→17:56)
[2019-03-01] MEDS: Piperacillin/Tazobactam 3.375 GM in Sodium Chloride 0.9% 100 ML IVPB SCH ×2 (17:48→23:27)
[2019-03-01] MEDS ORDERED: Allopurinol 100 MG TAB PO SCH (21:00)
[2019-03-01] MEDS ORDERED: Hydrochlorothiazide 25 MG TAB PO SCH (21:00)
[2019-03-01] MEDS ORDERED: Non-Formulary Item 1 EACH (Olmesartan/Hydrochlorothiazide [Olmesartan-Hctz 40-12.5 Mg Tab PO SCH (21:00)
[2019-03-01] MEDS ORDERED: Rosuvastatin 20 MG TAB PO SCH (21:00)
[2019-03-01] MEDS ORDERED: Losartan 25 MG TAB PO SCH (21:00)
--- NOTE | 2019-03-01 21:48 | PDOC.EVN ---
Event Note - Event Note Event Note: Patient seen and examined. Says he felt generally terrible. Feeling better now. He has some R sided rales. Consistent with right sided pneumonia. Will continue with IV abx.
[2019-03-01] MEDS: traZODone HCl 50 MG TAB PO PRN (23:28)
[2019-03-01] MEDS: Zolpidem Tartrate 5 MG TAB PO PRN (23:28)
[2019-03-02] MEDS: Piperacillin/Tazobactam 3.375 GM in Sodium Chloride 0.9% 100 ML IVPB SCH ×3 (05:26→17:27)
[2019-03-02] MEDS: Mometasone/Formoterol 120 PUFF INHALER INH SCH (07:50)
[2019-03-02] MEDS: Famotidine 20 MG TAB PO SCH (09:22)
[2019-03-02] MEDS: Tamsulosin HCl 0.4 MG CAP PO SCH (09:22)
[2019-03-02] MEDS: HYDROcodone/Acetaminophen 10/325 mg Tablet PO PRN ×2 (09:22→17:27)
[2019-03-02] MEDS: Amiodarone 200 MG TAB PO SCH (09:22)
[2019-03-02] MEDS: DULoxetine 30 MG CAP PO SCH (09:22)
[2019-03-02] MEDS: Amlodipine 5 MG TAB PO SCH (09:22)
[2019-03-02] MEDS: Apixaban 5 MG TAB PO SCH (09:22)
[2019-03-02] MEDS: Polyethylene Glycol 3350 17 GM Packet PO SCH (09:23)
[2019-03-02] MEDS: Bupropion 100 MG SR TAB PO SCH (09:27)
[2019-03-02] MEDS: Cefepime 2 GM in Sodium Chloride 0.9% 100 ML IVPB SCH (09:27)
[2019-03-02 17:10] VITALS: BP 142/80; TEMP 97.4
--- NOTE | 2019-03-03 03:27 | DIS ---
DATE OF ADMISSION: 02/28/2019 DATE OF DISCHARGE: 03/02/2019 DISCHARGE DIAGNOSES: 1. Pneumonia. 2. Acute hypoxic respiratory failure secondary to pneumonia. 3. History of atrial fibrillation. 4. Hypertension. 5. Gout. 6. History of prostate cancer. 7. Hyperlipidemia. HISTORY OF PRESENT ILLNESS: This patient is an 78-year-old male, who presented to the emergency department with worsening dyspnea for about one day. The patient reported he felt generally terrible and had a home O2 saturation monitor, checked it at home and it was 84%. States he had been in the hospital about 2-3 weeks prior for atrial fibrillation related issues. He was transitioned from flecainide to amiodarone. He had a white count of 9.7. D-dimer 0.63. Troponins were negative. BNP was 324. EKG showed 72 beats per minute. CTA of the chest, no pulmonary embolus but concern for right-sided pneumonia, 8 mm left lower lobe lung nodule with recommended followup in 3 months. HOSPITAL COURSE: The patient was admitted to the hospital with what appeared to be acute hypoxic respiratory failure with some right-sided pneumonia. He was given supplemental oxygen and started on broad-spectrum IV antibiotics, accommodating his antiarrhythmic medications. The patient had some DuoNeb administered as well. He did very well with that. Subsequently, his oxygen levels improved. He was able to get up and ambulate without oxygen and maintain his O2 saturations. He felt well. He had some mild persistent cough. He had no resultant fever and was felt ultimately to be stable for discharge to home. On the day of discharge, temperature was 97.7, pulse 71, respirations 21, O2 saturations 98% on 2 L, and 95% on room air. His BP was 142/80. He was awake and alert. Heart was regular rate and rhythm. His lungs were more clear. Abdomen was benign. DISPOSITION: The patient is discharged home. DISCHARGE MEDICATIONS: He will be on: 1. Omnicef 300 mg p.o. b.i.d. 2. Doxycycline 100 mg p.o. b.i.d. He will continue with his usual home medications includin. Allopurinol 100 mg p.o. q.p.m. 2. Eliquis 5 mg b.i.d. 3. Amlodipine 5 mg p.o. q.a.m. 4. Amiodarone 200 mg daily. 5. Bupropion 100 mg q.a.m. 6. QVAR inhaler one inhalation b.i.d. 7. Breo Ellipta one inhalation daily. 8. Cymbalta 30 mg p.o. q.a.m. 9. [place] p.r.n. 10. Ibuprofen p.r.n. 11. Olmesartan HCTZ 40-12.5 one p.o. at bedtime. 12. Atrovent HFA q.i.d. 13. Tamsulosin 40 mg daily. 14. Crestor 20 mg at bedtime. 15. Omeprazole 20 mg b.i.d. 16. Fentanyl patch one patch 37.5 mcg q.72 hours. 17. AndroGel pump 40.5 mg topical daily. 18. Ambien 10 mg at bedtime p.r.n. 19. Trazodone 0.5 mg p.o. at bedtime p.r.n. DIET: He is to have a heart healthy diet. ACTIVITY: As tolerated. FOLLOWUP: He is to follow up with Dr. Bush, who is his primary care physician. He should also follow up with Dr. Cavanaugh and Dr. Serna. He can return to the hospital at any time should he have the need to do so. He will be made aware of the need to have the followup CT scan in 3 months to reassess the subcentimeter lung lesion. Time spent in discharge activities was 33 min. Job ID: [id number] MTDD
--- NOTE | 2019-03-03 17:24 | PDOC.EVN ---
Event Note - Event Note Event Note: The patient was counseled regarding the 8mm lung nodule seen on CT. He was instructed to follow up with his PCP and/or Dr. Serna for a follow up CT in three months.
--- NOTE | 2019-03-04 21:31 | PQF ---
[employer] Specification Manager Crystal Reports Win[employer] TAWANDA Mcmahan JEFFREY LOERA MD [id number] [facility]-293 [id number] CLINICAL DOCUMENTATION CLARIFICATION FORM: POST DISCHARGE Addendum to original discharge summary date: ____ Late entry note date: __ DATE:03/04/2019 ATTN:JEFFREY LOERA MD Please exercise your independent, professional judgment in responding to the clarification form. Clinical indicators are provided on the bottom of this form for your review Please check appropriate box(s): HEART FAILURE: A. TYPE: [ ] Systolic / HFrEF [ ] Diastolic / HFpEF [ ] Combined Systolic / Diastolic B. ACUITY [ ] Acute [ ] Acute on Chronic [ ] Chronic [ ] Other diagnosis Pneumonia [ ] Unable to determine In addition, please specify: Present on Admission (POA): [ ] Yes [ ] No [ ] Unable to determine For continuity of documentation, please document condition throughout progress notes and discharge summary. Thank You. CLINICAL INDICATORS - SIGNS / SYMPTOMS / LABS CHF - Documented in Emergency notes pg#9 Shortness of breath - Documented in H&P on 02/28 by Jagruti Bear Ankle edema over the last week and he reports that he normally gets some leg edema with driving car but it usually goes down at the time - Documented in H& P on 02/28 by Jagruti Bear He went to [place] and back on the same day, legs with some edema Which has not resolved as much as it normally does - Documented in H&P on 02/28 by Jagruti Bear Elevated BNP 323.6 on 02/28- Documented in Laboratory RISKS: Acute hypoxic respiratory failure Pneumonia HTN Afib TREATMENTS: EKG Chest Xray The patient was started some Lasix in past medical history - Documented in H&P on 02/28 by Jagruti Bear (This form is maintained as a part of the permanent medical record) 2014 [employer] All Rights Reserved [email or web address] [not provided] MTDD
== END 2019-03-02 18:45 | disposition home or self-care (01) | DRG 193 ==
LOC: ERS 17:31 → 2NO 22:01
PROVIDERS: ADMIT Internal Medicine; ATTEND Internal Medicine
DX: J18.9 Pneumonia, unspecified organism (principal); J96.01 Acute respiratory failure with hypoxia; I48.91 Unspecified atrial fibrillation; J45.909 Unspecified asthma, uncomplicated; E78.5 Hyperlipidemia, unspecified; Z96.642 Presence of left artificial hip joint; M10.9 Gout, unspecified; G89.29 Other chronic pain; M54.9 Dorsalgia, unspecified; G47.00 Insomnia, unspecified; Z85.46 Personal history of malignant neoplasm of prostate; Z90.49 Acquired absence of other specified parts of digestive tract; Z79.899 Other long term (current) drug therapy; I50.9 Heart failure, unspecified; I11.0 Hypertensive heart disease with heart failure
CPT/HCPCS: 36415; 71045; 71275; 80053; 81003; 82274; 82553; 83690; 83735; 83880; 84443; 84484; 85025; 85379; 85610; 85730; 93005; 94640; 96365; 96375; J0692; J1940; J2543; J3490; J7620; Q9967

== ENCOUNTER 2019-04-21 11:20 | Day surgery (SDC) | payer MEDICARE, BC ==
[2019-04-20 14:48] VITALS: BMI 29.7
[2019-04-21] MEDS ORDERED: EPINEPHrine 1 MG/ML AMP ONE (12:26)
[2019-04-21] MEDS ORDERED: Sodium Chloride 0.9% 0 ML ONE (12:26)
[2019-04-21] MEDS ORDERED: Bupivacaine PF 0.5% 30 ML VIAL ONE (12:26)
[2019-04-21] MEDS ORDERED: Propofol 1,000 MG/100 ML VIAL IV ONE (12:35)
[2019-04-21] MEDS ORDERED: CEFAZOLIN 1 GM VIAL ONE (12:44)
[2019-04-21] MEDS ORDERED: Sodium Chloride 0.9% 100 ML ONE (12:44)
[2019-04-21] MEDS ORDERED: Lidocaine 1% w/Epinephrine 1:100K 30 ML VIAL ONE (13:11)
[2019-04-21] MEDS ORDERED: Fentanyl 100 MCG/2 ML VIAL ONE (13:14)
--- NOTE | 2019-04-21 16:38 | OP ---
DATE OF PROCEDURE: 04/21/2019 PREOPERATIVE DIAGNOSES: 1. Postlaminectomy syndrome with chronic back and radicular pain. 2. Chronic radiculopathy. 3. Chronic pain. POSTOPERATIVE DIAGNOSES: 1. Postlaminectomy syndrome with chronic back and radicular pain. 2. Chronic radiculopathy. 3. Chronic pain. PROCEDURES PERFORMED: 1. Implantation of a right spinal cord stimulation electrode array. 2. Implantation of a left spinal cord stimulation electrode array. 3. Intraoperative programming. 4. Implantation of internal pulse generator. ANESTHESIA: TIVA. COMPLICATIONS: None. SUMMARY: Risks and benefits were discussed with the patient including but not limited to bleeding, infection, possible nerve damage, worsening pain, or relief of pain, was taken to the OR, prepped and draped in standard fashion. Fluoroscopic guidance was used to identify the thoracolumbar junction. Incision was carried out over the spinous processes of L1 and L2 and the L1-L2 interspace was chosen for entry into the epidural space using the supplied Tuohy needle. The epidural space was easily identified. Using a right and left paramedian approach, loss of resistance technique, one pass, no paresthesia, CSF, or heme. The electrode was then placed over the dorsal columns with the most cephalad electrode at the superior endplate of T7. The electrodes were parallel. Intraoperative programming achieved appropriate and bilateral stimulation coverage concordant and overlapping with the patient's pain pattern. The stylets were then removed intact and needles removed intact. The lead anchors were slipped over the lead and then each was anchored to the fascia using two 2-0 silk sutures and then, the anchors were locked into place. Incision was made over the left buttocks, taken down to the fascia. Fascia was undermined. The IPG was then placed in the pocket, tunneling was accomplished between incision using the straw tunneler. Leads were passed. Straw was removed. Leads were connected to the IPG. All set screws were tightened using the supplied ratcheted screwdrivers. All impedances were intact. The IPG was placed in the pocket riding side out. Closure was accomplished in layers using interrupted 2-0 Vicryl in layers and the skin was closed with a running subcuticular for Rapide. Dermabond was placed after dry, 4x4s, and Medipore tape was used for dressing. There were no complications prior to closure. All counts were correct x2. Job ID: [id number]
== END 2019-04-21 15:30 | disposition home or self-care (01) ==
LOC: SDC 11:20
PROVIDERS: ATTEND Anesthesiology Pain Medicine
PROC: 0JH70DZ Insertion of Multiple Array Stimulator Generator into Back Subcutaneous Tissue and Fascia, Open Approach (ICD-10-PCS; principal; 2019-04-21)
PROC: 00HU3MZ Insertion of Neurostimulator Lead into Spinal Canal, Percutaneous Approach (ICD-10-PCS; 2019-04-21)
DX: M96.1 Postlaminectomy syndrome, not elsewhere classified (principal); M54.16 Radiculopathy, lumbar region; G89.4 Chronic pain syndrome; E78.5 Hyperlipidemia, unspecified; I10 Essential (primary) hypertension; K21.9 Gastro-esophageal reflux disease without esophagitis; N40.0 Benign prostatic hyperplasia without lower urinary tract symptoms; F32.9 Major depressive disorder, single episode, unspecified; M19.90 Unspecified osteoarthritis, unspecified site; M10.9 Gout, unspecified; G47.33 Obstructive sleep apnea (adult) (pediatric); Z79.899 Other long term (current) drug therapy; Z99.89 Dependence on other enabling machines and devices
CPT/HCPCS: 76000; C1767; C1778; J0171; J0690; J2001; J2704; J3010; J3490; S0020

== ENCOUNTER 2019-05-13 12:46 | Outpatient (CLI) | payer MEDICARE, BC ==
--- NOTE | 2019-05-13 13:11 | RAD ---
CHEST 2 VIEWS: HISTORY: Dyspnea. COMPARISON: Radiograph of 02/28/2019 as well as 11/18/2018. FINDINGS: There is a new dorsal column stimulator with electrode tips projecting over the midthoracic spine. M ild levoscoliosis. Improved aeration of the lungs as well as the right middle lobe. No acute airspace consolidation, pn eumothorax, or effusion. IMPRESSION: 1. Improved aeration of the lungs. 2. New dorsal column stimulator leads projecting over the midthoracic spine. POS: [facility]
== END 2019-05-13 12:47 | disposition home or self-care (01) ==
LOC: RAD 12:46
PROVIDERS: ATTEND Internal Medicine Critical Care Medicine
DX: R06.00 Dyspnea, unspecified (principal); Z96.9 Presence of functional implant, unspecified
CPT/HCPCS: 71046

== ENCOUNTER 2019-09-21 06:43 | Outpatient (CLI) | payer MEDICARE, BC, OTHER ==
[2019-09-21 15:55] LABS: Hemoglobin 11.6 g/dL (14.0-18.0); Mean Corpuscular HGB CONC 32.9 g/dL (32.0-36.0); Mean Corpuscular Hemoglobin 33.8 pg (27.0-31.0); Mean Platelet Volume 6.6 fL (7.4-10.4); Platelet Count 240 thou/uL (130-400); RBC Distribution Width 12.8 % (11.5-14.5); Red Blood Cell (RBC) Count 3.44 mill/uL (4.70-6.10); White Blood Cell (WBC) Count 7.3 thou/uL (4.8-10.8)
[2019-09-21 16:16] LABS: Anion Gap 13 mmol/L (10-20); BUN (Urea Nitrogen) 31 mg/dL (8.4-25.7); Calc. Creatinine Clearance 0 mL/min (70-130); Calcium 8.1 mg/dL (7.8-10.44); Carbon Dioxide 28 mmol/L (23-31); Chloride 100 mmol/L (98-107); Estimated GFR-MDRD 43; Glucose 103 mg/dL (83-110); Potassium 4.8 mmol/L (3.5-5.1); Sodium 136 mmol/L (136-145)
[2019-09-22 18:05] LABS: SARS-CoV-2 MS2 Positive; SARS-CoV-2 N Gene Negative; SARS-CoV-2 S Gene Negative; SARS-CoV-2 orf1ab Negative
== END 2019-09-21 06:44 | disposition home or self-care (01) ==
LOC: LABBT 06:43
PROVIDERS: ATTEND Internal Medicine Cardiovascular Disease
DX: Z01.812 Encounter for preprocedural laboratory examination (principal); Z11.59 Encounter for screening for other viral diseases
CPT/HCPCS: 80048; 85027; U0003; 87635

== ENCOUNTER 2019-09-23 08:43 | Day surgery (SDC) | payer MEDICARE, BC ==
[2019-09-20 12:47] VITALS: BMI 31.3
[2019-09-23] MEDS ORDERED: Ketamine 50 MG/ML (10ML VIAL) ONE (10:08)
[2019-09-23] MEDS ORDERED: PROPOFOL 200 MG/20 ML VIAL ONE (11:55)
--- NOTE | 2019-09-23 14:03 | EKG ---
Test Reason : PREOP CARDIOVERSION Blood Pressure : / mmHG Vent. Rate : 079 BPM Atrial Rate : 107 BPM P-R Int : 000 ms QRS Dur : 118 ms QT Int : 436 ms P-R-T Axes : 000 036 044 degrees QTc Int : 499 ms Atrial fibrillation with premature ventricular or aberrantly conducted complexes Non-specific intra-ventricular conduction delay Nonspecific ST abnormality Prolonged QT Abnormal ECG Confirmed by JABARI CONNER ([id number]) on 09/23/2019 2:03:27 PM Referred By: JOS Confirmed By:JABARI CONNER
--- NOTE | 2019-09-23 14:06 | EKG ---
Test Reason : POST CARDIOVERSION Blood Pressure : / mmHG Vent. Rate : 060 BPM Atrial Rate : 060 BPM P-R Int : 238 ms QRS Dur : 112 ms QT Int : 480 ms P-R-T Axes : 053 045 077 degrees QTc Int : 480 ms Sinus rhythm with 1st degree A-V block Non-specific intra-ventricular conduction delay Nonspecific ST abnormality Prolonged QT Abnormal ECG Confirmed by JABARI CONNER ([id number]) on 09/23/2019 2:05:57 PM Referred By: JOS Confirmed By:JABARI CONNER
--- NOTE | 2019-09-24 09:11 | OP ---
DATE OF PROCEDURE: 09/23/2019 PROCEDURE PERFORMED: Transesophageal echocardiogram. INDICATIONS: This is an 79-year-old gentleman with paroxysmal atrial fibrillation. DESCRIPTION OF PROCEDURE: The patient was taken to the PACU. The patient was sedated by Anesthesiology. A transesophageal probe was placed into the distal esophagus, into stomach. Echocardiographic images were obtained. FINDINGS: 1. Mild decrease in left ventricular systolic function. 2. Left atrial enlargement. 3. Normal aortic valve. 4. Mild mitral regurgitation. 5. Mild tricuspid regurgitation. 6. No thrombus is noted in the left atrium or left atrial appendage. 7. Atherosclerotic debris in the descending aorta. IMPRESSION: No formed thrombus in left atrium or left atrial appendage. Job ID: [id number]
--- NOTE | 2019-09-25 20:09 | OP ---
DATE OF PROCEDURE: 09/23/19 SURGEON: Martín Cavanaugh M.D. PROCEDURE: Electrical cardioversion. Patient remained sedated after transesophageal echo revealed no evidence of intracardiac thrombus. He was sedated by anesthesia. With 200 joules of synchronized energy, he returned to sinus rhythm. He w ill reduce his Amiodarone from 200 b.i.d. to 200 mg q. day.
== END 2019-09-23 14:20 | disposition home or self-care (01) ==
LOC: SDC 08:43
PROVIDERS: ATTEND Internal Medicine Cardiovascular Disease
PROC: B24BZZ4 Ultrasonography of Heart with Aorta, Transesophageal (ICD-10-PCS; principal; 2019-09-23)
PROC: 5A2204Z Restoration of Cardiac Rhythm, Single (ICD-10-PCS; 2019-09-23)
DX: I48.0 Paroxysmal atrial fibrillation (principal); I70.0 Atherosclerosis of aorta; I08.1 Rheumatic disorders of both mitral and tricuspid valves; E78.00 Pure hypercholesterolemia, unspecified; I10 Essential (primary) hypertension; G47.33 Obstructive sleep apnea (adult) (pediatric); E78.5 Hyperlipidemia, unspecified; K21.9 Gastro-esophageal reflux disease without esophagitis; N40.0 Benign prostatic hyperplasia without lower urinary tract symptoms; E03.9 Hypothyroidism, unspecified; Z87.891 Personal history of nicotine dependence; Z79.899 Other long term (current) drug therapy; Z98.1 Arthrodesis status
CPT/HCPCS: 92960; 93005; 93010; 93312; J2704

== ENCOUNTER 2019-09-27 10:29 | Outpatient (CLI) | payer MEDICARE, BC ==
--- NOTE | 2019-09-27 11:34 | CT ---
CT THORAX NONCONTRAST: DATE: 09/27/2019 HISTORY: 79-year-old male for follow-up of solitary pulmonary nodule Dyspnea COMPARISON: 02/28/2019 FINDINGS: Previously, there was an 8 mm noncalcified pulmonary nodule in the superior segment of the left lower lobe near the major fissure, has completely resolved. The previously demonstrated patchy alveolar infiltrates located in the anterior segment of right uppe r lobe, both anteriorly and laterally, and centrally located base of right lower lobe, have also resolved. There is a new small patchy groundglass lesion in the superior segment of right lower lobe. The left lung is essentially clear. No pneumothorax. The previously demonstrated small right pleural effusion has resolved. No thoracic aortic aneurysm. No mediastinal lymphadenopathy. No cardiomegaly o r pericardial effusion. Heavy calcification of left main, and to a lesser degree LAD, RCA,. IMPRESSION: 1) interval resolution of the left lower lobe pulmonary nodule. 2.) Interval resolution of the infiltrates in right upper lobe and right lower lobe. 3) new groundglass lesion in superior segment of right lower lobe: Recommend serial follow-up chest C Ts for this, beginning in 6 months. 4) coronary atherosclerotic disease.
== END 2019-09-27 10:30 | disposition home or self-care (01) ==
LOC: CT 10:29
PROVIDERS: ATTEND Internal Medicine Critical Care Medicine
DX: R91.1 Solitary pulmonary nodule (principal); I25.10 Atherosclerotic heart disease of native coronary artery without angina pectoris; J98.4 Other disorders of lung
CPT/HCPCS: 71250

== ENCOUNTER 2020-02-14 22:06 | Emergency (ER) | payer MEDICARE, BC | END 2020-02-14 22:17 | disposition E | LOC: ERS 22:06 | DX: I46.9 Cardiac arrest, cause unspecified (principal); E78.5 Hyperlipidemia, unspecified; I10 Essential (primary) hypertension; I48.91 Unspecified atrial fibrillation; F32.9 Major depressive disorder, single episode, unspecified | CPT/HCPCS: 92950 ==